=== PATIENT | female | born 1940 | race Caucasian/White ===

== ENCOUNTER 2016-08-30 20:12 | Observation (INO) | payer MEDICARE ==
--- NOTE | 2016-08-30 21:35 | RAD ---
Indication: Shortness of breath. Single frontal view of the chest performed at 2104 hours was reviewed. Comparison is made with previous exam dated November 19, 2014. No mediastinal shift is noted. Heart is of normal size and configuration. Lung lynn appear clear. Central line is in place. No pneumothorax is noted. IMPRESSION: NO ACTIVE CARDIOPULMONARY DISEASE IS NOTED.
[2016-08-30 22:04] LABS: Hematocrit 33 % (35-47); Hemoglobin 10.5 g/dl (12.0-16.0); Mean Corpuscular HGB Conc 32 g/dl (31-36); Mean Corpuscular Hemoglobin 31 pg (27-31); Mean Corpuscular Volume 96 fL (80-97); Mean Platelet Volume 11 um3 (7.4-10.4); Red Blood Count 3.42 10^6/ul (4.0-5.4); Red Cell Distribution Width 18 % (10.5-15); White Blood Count 6.3 10^3/ul (3.5-10.8)
[2016-08-30 22:05] LABS: Add Diff/Slide Review? Slide Review Added; Comments Flag Yes
[2016-08-30 22:11] LABS: Urine Bacteria 1+ (Absent); Urine Bilirubin Negative (Negative); Urine Glucose 1+(50 mg/dL) (Negative); Urine Nitrite Negative (Negative)
[2016-08-30 22:19] LABS: Albumin 3.8 g/dL (3.2-5.2); BUN/Creatinine Ratio 15.5 (8-20); C Reactive Protein 39.83 mg/L (< 5.00); Calcium 8.6 mg/dL (8.6-10.3); EGFR African American 62.4 (>60); EGFR Non-African American 48.6 (>60); Globulin 2.9 g/dL (2-4); Magnesium 1.8 mg/dL (1.9-2.7); Potassium 4.4 mmol/L (3.5-5.0); Total Bilirubin 0.6 mg/dL (0.2-1.0); Total Protein 6.7 g/dL (6.4-8.9)
[2016-08-30] MEDS ORDERED: Iodixanol* (CONTRAST) 320 MG/ML 100 ML SDV IV ONE (22:24)
--- NOTE | 2016-08-30 22:54 | RAD ---
Indication: Shortness of breath. Contrast: Administered 74.0 ml of Contrast -- mgi/ml CTA of the chest was performed after IV contrast administration. Coronal and sagittal reconstructed images were obtained. The pulmonary arterial tree is well opacified. There are no filling defects present to suggest pulmonary embolus. The ascending, aortic arch and descending thoracic aorta demonstrates no evidence of aortic dissection or aneurysmal dilatation. The patient apparently is status post left thyroidectomy. There is no mediastinal or hilar adenopathy noted. The heart demonstrates no pericardial effusion. The changes and major bronchi appear patent. Lung lynn demonstrate no evidence of alveolar consolidation. Some atelectasis is noted in the left lower lobe just adjacent to the fissure. The visualized bony structures demonstrates degenerative disc disease at multiple levels in the lower thoracic spine. The visualized abdominal organs are otherwise unremarkable aside from a distended stomach. IMPRESSION: No definite evidence of pulmonary embolus is noted.
[2016-08-30] MEDS ORDERED: NS 0.9% 500 ML BAG* 500 ML IV ONE (23:00)
--- NOTE | 2016-08-31 03:39 | HP ---
H&P (Free Text) History and Physical: PCP: Garcia Krause MD Oncology: Kee Sampson MD Date/Time of Evaluation: 08/31/2016 0340 CC: SOB HPI: Mrs Hilliard is a 76YO female HX pancreatic CA s/p hepatic stenting & Whipple who developed rapid onset of SOB and fatigue during chemoTX Monday prompting her to present for evaluation. She denies chest pain, F/C, N/V/D, change in bowel/bladder, congestion, change in cough, or other issues. ED evaluation shows benign CXR, stable vitals, and baseline lab values. She initially refused to ambulate to test for desaturation, but agreed once she was explained that subjective SOB would only qualify her for an observation which may incur more expense. Very soon upon ambulation her saO2 dropped into the low 80s qualifying her for full admission. PMedHx pancreatic CA s/p hepatic stenting & Whipple with recurrence in lymph nodes normocytic anemia HTN HLD Ambulatory Orders Ezetimibe TAB* [Zetia TAB*] 10 mg PO DAILY 10/15/14 Ondansetron ODT TAB* [Zofran Odt TAB*] 4 mg PO Q6H PRN 12/31/14 Pancrelipase (NF) [Creon (NF)] 1 cap PO SEE INSTRUCTIONS 08/30/16 Pancrelipase (NF) [Creon (NF)] 12,000 units PO TID WITH MEALS 08/30/16 Pregabalin CAP(*) [Lyrica CAP(*)] 25 mg PO BID 08/30/16 Tramadol HCl [Ultram] 50 mg PO Q12HR 08/30/16 Allergies Morphine Adverse Reaction (Mild, Verified 08/31/16 04:00) Nausea And Vomiting PSurgHx C3-7 laminectomy tonsillectomy Whipple for pancreatic CA appendectomy hysterectomy bunionectomy SocHx: former smoker w/ >40PYHX, minimal alcohol, no recreational drugs; lives with her in a 3 story house with numerous internal stairs and an elevator for entry; 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[employer]; full code status FamHx: positive for HTN, HLD ROS: as above, otherwise reviewed and all were negative Constitutional: NAD, normally developed, overweight white female vitals: Vital Signs Temp 37.1 C 08/31/16 00:46 Pulse 95 08/31/16 01:00 Resp 19 08/31/16 02:02 BP 160/84 08/31/16 02:02 Pulse Ox 91 08/31/16 01:00 Intake & Output 08/30/16 08/30/16 08/31/16 11:59 23:59 11:59 Weight 74.843 kg HEENM: atraumatic; sclera/conjunctiva: non-icteric/clear; hearing: clinically intact; oropharynx: clear, mucosa moist Neck: soft tissue: non-tender; thyroid: normal Pulmonary: clear to auscultation bilaterally, good aeration, no accessory muscle use CV: RR/RR, normal S1S2, no carotid bruit, no jugular venous distention, 2+ B DP/ PT, no edema Abdominal: soft, non-distended, diffusely mildly tender, no rebound/guarding/ rigidity, normoactive bowel sounds, no hepatosplenomegaly or masses, no costovertebral angle tenderness Musculoskeletal: general: grossly intact; gait: Integumental: normal appearance and texture of exposed skin Psychiatric orientation: AA&O to PPS affect: calm mood: cooperative eye contact: good content: reliable responses: timely insight: fair Testing: Lab Results 08/30/16 08/30/16 08/30/16 Range/Units 21:50 21:50 21:50 WBC 6.3 (3.5-10.8) 10^3/ul RBC 3.42 L (4.0-5.4) 10^6/ul Hgb 10.5 L (12.0-16.0) g/dl Hct 33 L (35-47) % MCV 96 (80-97) fL MCH 31 (27-31) pg MCHC 32 (31-36) g/dl RDW 18 H (10.5-15) % Plt Count 128 L (150-450) 10^3/ul MPV 11 H (7.4-10.4) um3 Neut % (Auto) 90.7 H (38-83) % Lymph % (Auto) 3.6 L (25-47) % [place] % (Auto) 3.4 (1-9) % Eos % (Auto) 0.7 (0-6) % Baso % (Auto) 1.6 (0-2) % Absolute Neuts (auto) 5.7 (1.5-7.7) 10^3/ul Absolute Lymphs (auto) 0.2 L (1.0-4.8) 10^3/ul Absolute Monos (auto) 0.2 (0-0.8) 10^3/ul Absolute Eos (auto) 0 (0-0.6) 10^3/ul Absolute Basos (auto) 0.1 (0-0.2) 10^3/ul Absolute Nucleated RBC 0.01 10^3/ul Nucleated RBC % 0.1 INR (Anticoag Therapy) 0.96 (0.89-1.11) Sodium (133-145) mmol/L Potassium (3.5-5.0) mmol/L Chloride (101-111) mmol/L Carbon Dioxide (22-32) mmol/L Anion Gap (2-11) mmol/L BUN (6-24) mg/dL Creatinine (0.51-0.95) mg/dL Est GFR ( Amer) (>60) Est GFR (Non-Af Amer) (>60) BUN/Creatinine Ratio (8-20) Glucose (70-100) mg/dL Lactic Acid (0.5-2.0) mmol/L Calcium (8.6-10.3) mg/dL Magnesium (1.9-2.7) mg/dL Total Bilirubin (0.2-1.0) mg/dL AST (13-39) U/L ALT (7-52) U/L Alkaline Phosphatase (34-104) U/L Total Creatine Kinase (10-223) U/L CK-MB (CK-2) (0.6-6.3) ng/mL Troponin I (<0.04) ng/mL C-Reactive Protein (< 5.00) mg/L Total Protein (6.4-8.9) g/dL Albumin (3.2-5.2) g/dL Globulin (2-4) g/dL Albumin/Globulin Ratio (1-3) Urine Color Yellow Urine Appearance Clear Urine pH 6.0 (5-9) Ur Specific [place] 1.011 (1.010-1.030) Urine Protein Negative (Negative) Urine Ketones Negative (Negative) Urine Blood 1+ H (Negative) Urine Nitrate Negative (Negative) Urine Bilirubin Negative (Negative) Urine Urobilinogen Negative (Negative) Ur Leukocyte Esterase Negative (Negative) Urine WBC (Auto) Trace(0-5/hpf) (Absent) Urine RBC (Auto) 1+(3-5/hpf) H (Absent) Ur Squamous Epith Cells Present H (Absent) Urine Bacteria 1+ H (Absent) Urine Glucose 1+(50 mg/dl) H (Negative) 08/30/16 08/30/16 Range/Units 21:50 21:50 WBC (3.5-10.8) 10^3/ul RBC (4.0-5.4) 10^6/ul Hgb (12.0-16.0) g/dl Hct (35-47) % MCV (80-97) fL MCH (27-31) pg MCHC (31-36) g/dl RDW (10.5-15) % Plt Count (150-450) 10^3/ul MPV (7.4-10.4) um3 Neut % (Auto) (38-83) % Lymph % (Auto) (25-47) % [place] % (Auto) (1-9) % Eos % (Auto) (0-6) % Baso % (Auto) (0-2) % Absolute Neuts (auto) (1.5-7.7) 10^3/ul Absolute Lymphs (auto) (1.0-4.8) 10^3/ul Absolute Monos (auto) (0-0.8) 10^3/ul Absolute Eos (auto) (0-0.6) 10^3/ul Absolute Basos (auto) (0-0.2) 10^3/ul Absolute Nucleated RBC 10^3/ul Nucleated RBC % INR (Anticoag Therapy) (0.89-1.11) Sodium 136 (133-145) mmol/L Potassium 4.4 (3.5-5.0) mmol/L Chloride 105 (101-111) mmol/L Carbon Dioxide 23 (22-32) mmol/L Anion Gap 8 (2-11) mmol/L BUN 17 (6-24) mg/dL Creatinine 1.10 H (0.51-0.95) mg/dL Est GFR ( Amer) 62.4 (>60) Est GFR (Non-Af Amer) 48.6 (>60) BUN/Creatinine Ratio 15.5 (8-20) Glucose 175 H (70-100) mg/dL Lactic Acid 2.4 H* (0.5-2.0) mmol/L Calcium 8.6 (8.6-10.3) mg/dL Magnesium 1.8 L (1.9-2.7) mg/dL Total Bilirubin 0.60 (0.2-1.0) mg/dL AST 44 H (13-39) U/L ALT 23 (7-52) U/L Alkaline Phosphatase 220 H (34-104) U/L Total Creatine Kinase 36 (10-223) U/L CK-MB (CK-2) 1.0 (0.6-6.3) ng/mL Troponin I 0.00 (<0.04) ng/mL C-Reactive Protein 39.83 H (< 5.00) mg/L Total Protein 6.7 (6.4-8.9) g/dL Albumin 3.8 (3.2-5.2) g/dL Globulin 2.9 (2-4) g/dL Albumin/Globulin Ratio 1.3 (1-3) Urine Color Urine Appearance Urine pH (5-9) Ur Specific [place] (1.010-1.030) Urine Protein (Negative) Urine Ketones (Negative) Urine Blood (Negative) Urine Nitrate (Negative) Urine Bilirubin (Negative) Urine Urobilinogen (Negative) Ur Leukocyte Esterase (Negative) Urine WBC (Auto) (Absent) Urine RBC (Auto) (Absent) Ur Squamous Epith Cells (Absent) Urine Bacteria (Absent) Urine Glucose (Negative) CXR, personally reviewed: IMPRESSION: NO ACTIVE CARDIOPULMONARY DISEASE IS NOTED. CTA chest, personally reviewed: IMPRESSION: No definite evidence of pulmonary embolus is noted. 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
[2016-08-31] MEDS ORDERED: hydrALAZINE IV* 20 MG/ML VIAL IV PRN (04:08)
[2016-08-31] MEDS ORDERED: Acetaminophen TAB* 325 MG PO PRN (04:08)
[2016-08-31] MEDS ORDERED: Albuterol 2.5 MG/3 ML NEB.SOL* (0.083%) INH PRN (04:08)
[2016-08-31 06:20] LABS: Hematocrit 26 % (35-47); Hemoglobin 8.7 g/dl (12.0-16.0); Mean Corpuscular HGB Conc 33 g/dl (31-36); Mean Corpuscular Hemoglobin 31 pg (27-31); Mean Corpuscular Volume 94 fL (80-97); Mean Platelet Volume 11 um3 (7.4-10.4); Red Blood Count 2.78 10^6/ul (4.0-5.4); Red Cell Distribution Width 18 % (10.5-15); White Blood Count 7.7 10^3/ul (3.5-10.8)
[2016-08-31 06:21] LABS: Comments Flag Yes
[2016-08-31 06:36] LABS: BUN/Creatinine Ratio 18.2 (8-20); Calcium 7.8 mg/dL (8.6-10.3); EGFR African American 70.5 (>60); EGFR Non-African American 54.8 (>60); Potassium 4.3 mmol/L (3.5-5.0)
[2016-08-31] MEDS ORDERED: Pregabalin CAP(*) 25 MG ONE (08:14)
[2016-08-31 08:15] VITALS: BP 152/82
[2016-08-31] MEDS ORDERED: traMADol TAB* 50 MG PO PRN (08:17)
[2016-08-31] MEDS: traMADol TAB* 50 MG ONE ×2 (08:18→09:54)
[2016-08-31] MEDS ORDERED: Pregabalin CAP(*) 50 MG PO SCH (09:00)
[2016-08-31] MEDS ORDERED: Pregabalin CAP(*) 25 MG PO SCH (09:00)
[2016-08-31] MEDS ORDERED: Docusate CAP* 100 MG PO SCH (09:00)
--- NOTE | 2016-08-31 14:14 | ED ---
Charlene Dallas Anna, scribed for TessaiAmy MD on 08/30/16 at 2106 . Shortness of Breath - HPI Summary HPI Summary: Patient is a 76 y/o female coming to [facility] presenting with constant SOB that began this afternoon during her regularly scheduled chemotherapy treatment. This does not typically happen during her chemotherapy treatments, which she has been receiving for the last two years. She reports that she is coughing because of the SOB. Denies fever. She recently had a UTI, but her urine today was clear. She is not on any blood thinners. 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 Her current symptoms do not feel similar to her previous PE. She follows with Dr. Sampson, her oncologist. Her history is significant for pancreatic CA, HTN, PE, cardiac arrest. Patient medications were reviewed this visit. - History of Current Complaint Chief Complaint: EDShortnessOfBreath Time Seen by Provider: 08/30/16 20:49 Hx Obtained From: Patient, Family/[employer] - accompanied by and family Onset/Duration: Lasting Hours, Still Present - Allergy/Home Medications Allergies/Adverse Reactions: Allergies Allergy/AdvReac Type Severity Reaction Status Date / Time Morphine AdvReac Mild Nausea And Verified 08/31/16 04:00 Vomiting Home Medications: Home Medications Pancrelipase (NF) [Creon (NF)] 1 cap PO SEE INSTRUCTIONS 08/30/16 [History Confirmed 08/30/16] Pancrelipase (NF) [Creon (NF)] 12,000 units PO TID WITH MEALS 08/30/16 [History Confirmed 08/30/16] Tramadol HCl [Ultram] 50 mg PO Q12HR 08/30/16 [History Confirmed 08/30/16] PMH/Surg Hx/FS Hx/Imm Hx Endocrine/Hematology History: Denies: Hx Diabetes Cardiovascular History: Reports: Hx Cardiac Arrest, Hx Hypercholesterolemia, Hx Hypertension Denies: Hx Congestive Heart Failure, Hx Pacemaker/ICD Respiratory History: Reports: Hx Pulmonary Embolism Denies: Hx Asthma History: Denies: Hx Renal Disease Sensory History: Reports: Hx Contacts or Glasses Denies: Hx Hearing Aid Opthamlomology History: Reports: Hx Contacts or Glasses Psychiatric History: Denies: Hx Panic Disorder - Cancer History Cancer Type, Location and Year: Pancreatic, untreated Hx Chemotherapy: No Hx Radiation Therapy: No - Surgical History Surgery Procedure, Year, and Place: APPY, cervical laminectomy c4,5,6,7/. PARTIAL THROIDECTOMY. COCCYX REMOVED. T&A. BUNIONECTOMY LEFT FOOT. LEFT BREAST BIOPSY. TONSILLECTOMY Infectious Disease History: No Infectious Disease History: Reports: Hx Shingles Denies: Traveled Outside the [place] in Last 30 Days - Family History Known Family History: Positive: Hypertension - Social History Alcohol Use: Occasionally Substance Use Type: Reports: None Smoking Status (MU): Former Smoker Review of Systems Negative: Fever Positive: Chest Pain - right sided Positive: Shortness Of Breath, Cough Positive: Numbness - right leg, baseline All Other Systems Reviewed And Are Negative: Yes Physical Exam Triage Information Reviewed: Yes Vital Signs On Initial Exam: Initial Vitals Temp Pulse Resp BP Pulse Ox 98.2 F 114 20 168/99 97 08/30/16 20:17 08/30/16 20:17 08/30/16 20:17 08/30/16 20:17 08/30/16 20:17 Vital Signs Reviewed: Yes Appearance: Positive: No Pain Distress, Well-Nourished, Ill-Appearing - chronically Skin: Positive: Warm, Dry, Pale - Generalized pallor, Other - generalized alopecia secondary to chemotherapy Head/Face: Positive: Normal Head/Face Inspection Eyes: Positive: EOMI, KENDRA, Conjunctiva Clear ENT: Positive: Pharynx normal, TMs normal Neck: Positive: Supple, Nontender Respiratory/Lung Sounds: Positive: Clear to Auscultation, Breath Sounds Present , Other - Poor respiratory effort. Negative: Rales, Rhonchi, Wheezes Cardiovascular: Positive: RRR, S1, S2. Negative: Murmur, Rub, Other - no gallops Abdomen Description: Positive: Soft, Other: - Healed horizontal epigastric surgical scar. Mild tenderness to palpation of epigastrium, chronic.. Negative : Distended, Guarding Bowel Sounds: Positive: Present Musculoskeletal: Positive: Normal, Strength/ROM Intact Neurological: Positive: Alert, Oriented to Person Place, Time. Negative: Cerebellar Dysfunction Psychiatric: Positive: Affect/Mood Appropriate Diagnostics - Vital Signs Vital Signs Temp Pulse Resp BP Pulse Ox 08/30/16 20:32 98.4 F 105 15 184/86 95 08/30/16 20:17 98.2 F 114 20 168/99 97 - Laboratory Lab Results: Lab Results 08/30/16 08/30/16 08/30/16 Range/Units 21:50 21:50 21:50 WBC 6.3 (3.5-10.8) 10^3/ul RBC 3.42 L (4.0-5.4) 10^6/ul Hgb 10.5 L (12.0-16.0) g/dl Hct 33 L (35-47) % MCV 96 (80-97) fL MCH 31 (27-31) pg MCHC 32 (31-36) g/dl RDW 18 H (10.5-15) % Plt Count 128 L (150-450) 10^3/ul MPV 11 H (7.4-10.4) um3 Neut % (Auto) 90.7 H (38-83) % Lymph % (Auto) 3.6 L (25-47) % [place] % (Auto) 3.4 (1-9) % Eos % (Auto) 0.7 (0-6) % Baso % (Auto) 1.6 (0-2) % Absolute Neuts (auto) 5.7 (1.5-7.7) 10^3/ul Absolute Lymphs (auto) 0.2 L (1.0-4.8) 10^3/ul Absolute Monos (auto) 0.2 (0-0.8) 10^3/ul Absolute Eos (auto) 0 (0-0.6) 10^3/ul Absolute Basos (auto) 0.1 (0-0.2) 10^3/ul Absolute Nucleated RBC 0.01 10^3/ul Nucleated RBC % 0.1 INR (Anticoag Therapy) 0.96 (0.89-1.11) Sodium (133-145) mmol/L Potassium (3.5-5.0) mmol/L Chloride (101-111) mmol/L Carbon Dioxide (22-32) mmol/L Anion Gap (2-11) mmol/L BUN (6-24) mg/dL Creatinine (0.51-0.95) mg/dL Est GFR ( Amer) (>60) Est GFR (Non-Af Amer) (>60) BUN/Creatinine Ratio (8-20) Glucose (70-100) mg/dL Lactic Acid (0.5-2.0) mmol/L Calcium (8.6-10.3) mg/dL Magnesium (1.9-2.7) mg/dL Total Bilirubin (0.2-1.0) mg/dL AST (13-39) U/L ALT (7-52) U/L Alkaline Phosphatase (34-104) U/L Total Creatine Kinase (10-223) U/L CK-MB (CK-2) (0.6-6.3) ng/mL Troponin I (<0.04) ng/mL C-Reactive Protein (< 5.00) mg/L Total Protein (6.4-8.9) g/dL Albumin (3.2-5.2) g/dL Globulin (2-4) g/dL Albumin/Globulin Ratio (1-3) Urine Color Yellow Urine Appearance Clear Urine pH 6.0 (5-9) Ur Specific [place] 1.011 (1.010-1.030) Urine Protein Negative (Negative) Urine Ketones Negative (Negative) Urine Blood 1+ H (Negative) Urine Nitrate Negative (Negative) Urine Bilirubin Negative (Negative) Urine Urobilinogen Negative (Negative) Ur Leukocyte Esterase Negative (Negative) Urine WBC (Auto) Trace(0-5/hpf) (Absent) Urine RBC (Auto) 1+(3-5/hpf) H (Absent) Ur Squamous Epith Cells Present H (Absent) Urine Bacteria 1+ H (Absent) Urine Glucose 1+(50 mg/dl) H (Negative) 08/30/16 08/30/16 Range/Units 21:50 21:50 WBC (3.5-10.8) 10^3/ul RBC (4.0-5.4) 10^6/ul Hgb (12.0-16.0) g/dl Hct (35-47) % MCV (80-97) fL MCH (27-31) pg MCHC (31-36) g/dl RDW (10.5-15) % Plt Count (150-450) 10^3/ul MPV (7.4-10.4) um3 Neut % (Auto) (38-83) % Lymph % (Auto) (25-47) % [place] % (Auto) (1-9) % Eos % (Auto) (0-6) % Baso % (Auto) (0-2) % Absolute Neuts (auto) (1.5-7.7) 10^3/ul Absolute Lymphs (auto) (1.0-4.8) 10^3/ul Absolute Monos (auto) (0-0.8) 10^3/ul Absolute Eos (auto) (0-0.6) 10^3/ul Absolute Basos (auto) (0-0.2) 10^3/ul Absolute Nucleated RBC 10^3/ul Nucleated RBC % INR (Anticoag Therapy) (0.89-1.11) Sodium 136 (133-145) mmol/L Potassium 4.4 (3.5-5.0) mmol/L Chloride 105 (101-111) mmol/L Carbon Dioxide 23 (22-32) mmol/L Anion Gap 8 (2-11) mmol/L BUN 17 (6-24) mg/dL Creatinine 1.10 H (0.51-0.95) mg/dL Est GFR ( Amer) 62.4 (>60) Est GFR (Non-Af Amer) 48.6 (>60) BUN/Creatinine Ratio 15.5 (8-20) Glucose 175 H (70-100) mg/dL Lactic Acid 2.4 H* (0.5-2.0) mmol/L Calcium 8.6 (8.6-10.3) mg/dL Magnesium 1.8 L (1.9-2.7) mg/dL Total Bilirubin 0.60 (0.2-1.0) mg/dL AST 44 H (13-39) U/L ALT 23 (7-52) U/L Alkaline Phosphatase 220 H (34-104) U/L Total Creatine Kinase 36 (10-223) U/L CK-MB (CK-2) 1.0 (0.6-6.3) ng/mL Troponin I 0.00 (<0.04) ng/mL C-Reactive Protein 39.83 H (< 5.00) mg/L Total Protein 6.7 (6.4-8.9) g/dL Albumin 3.8 (3.2-5.2) g/dL Globulin 2.9 (2-4) g/dL Albumin/Globulin Ratio 1.3 (1-3) Urine Color Urine Appearance Urine pH (5-9) Ur Specific [place] (1.010-1.030) Urine Protein (Negative) Urine Ketones (Negative) Urine Blood (Negative) Urine Nitrate (Negative) Urine Bilirubin (Negative) Urine Urobilinogen (Negative) Ur Leukocyte Esterase (Negative) Urine WBC (Auto) (Absent) Urine RBC (Auto) (Absent) Ur Squamous Epith Cells (Absent) Urine Bacteria (Absent) Urine Glucose (Negative) Result Diagrams: 08/31/16 05:57 08/31/16 05:57 Lab Statement: Any lab studies that have been ordered have been reviewed, and results considered in the medical decision making process. - Radiology CXR Xray Interpretation: No Acute Changes Radiology Interpretation Completed By: Radiologist Course/Dx - Course Assessment/Plan: Patient is a 76 y/o female coming to [facility] presenting with constant SOB that began this afternoon during her regularly scheduled chemotherapy treatment. CXR reveals no acute disease. Patient will be signed out at shift change, pending chest CT and lab results. - Diagnoses Provider Diagnoses: Shortness of breath Discharge - Discharge Plan Condition: Stable Disposition: ADMITTED TO [facility] Discharge Disposition Comment: signed out to Dr. Damon at shift change, pending chest CT and labs The documentation as recorded by the Charlene alvarez Anna accurately reflects the service I personally performed and the decisions made by Arlette alexander Afoma Frances, MD.
[2016-09-01] MEDS ORDERED: Heparin VIAL(*) 5000 UNITS/ML VIAL (FIVE THOUSAND) SUBCUT SCH (06:00)
== END 2016-08-31 13:15 | disposition home or self-care (01) ==
LOC: ED 20:12 → MED 08-31 03:32 → INTOOBSV 08-31 03:32
PROVIDERS: ADMIT Hospitalist; ATTEND Internal Medicine Hematology & Oncology
DX: J96.01 Acute respiratory failure with hypoxia (principal); C25.9 Malignant neoplasm of pancreas, unspecified; C77.9 Secondary and unspecified malignant neoplasm of lymph node, unspecified; G62.9 Polyneuropathy, unspecified; D64.9 Anemia, unspecified; I10 Essential (primary) hypertension; E78.5 Hyperlipidemia, unspecified; E78.00 Pure hypercholesterolemia, unspecified; I25.2 Old myocardial infarction; Z87.891 Personal history of nicotine dependence
CPT/HCPCS: 36415; 71010; 71275; 80048; 80053; 81003; 81015; 82550; 82553; 83605; 83735; 83880; 84484; 85025; 85027; 85610; 86140; 87086; 99285; A9270-GY; G0378; G8978-GP-CI; G8979-GP-CI; G8980-GP-CI; J1100; J1642; J2469; J9201; J9264; Q9967

== ENCOUNTER 2016-11-13 04:57 | Inpatient (IN) | payer MEDICARE ==
[2016-11-13] MEDS ORDERED: Vancomycin(*) 1,000 MG in NS 0.9% 250 ML* 250 ML IVPB ONE (05:33)
[2016-11-13] MEDS ORDERED: Acetaminophen TAB* 325 MG PO ONE (05:33)
[2016-11-13] MEDS ORDERED: NS 0.9% 1000 ML* 2,000 ML IV ONE (05:33)
[2016-11-13] MEDS ORDERED: NS 0.9% 250 ML* 250 ML ONE (05:39)
[2016-11-13] MEDS ORDERED: NS 0.9% 1000 ML* 1,000 ML IV SCH ×2 (05:45→09:30)
[2016-11-13 06:07] LABS: Hematocrit 27 % (35-47); Hemoglobin 8.8 g/dl (12.0-16.0); Mean Corpuscular HGB Conc 32 g/dl (31-36); Mean Corpuscular Hemoglobin 32 pg (27-31); Mean Corpuscular Volume 99 fL (80-97); Mean Platelet Volume 9 um3 (7.4-10.4); Red Blood Count 2.72 10^6/ul (4.0-5.4); Red Cell Distribution Width 24 % (10.5-15); White Blood Count 8.7 10^3/ul (3.5-10.8)
[2016-11-13 06:10] LABS: Add Diff/Slide Review? Slide Review Added; Comments Flag Yes
[2016-11-13 06:18] LABS: Urine Bacteria 1+ (Absent); Urine Bilirubin Negative (Negative); Urine Glucose Negative (Negative); Urine Nitrite Positive (Negative)
[2016-11-13 06:23] LABS: Albumin 2.9 g/dL (3.2-5.2); BUN/Creatinine Ratio 9.3 (8-20); C Reactive Protein 69.94 mg/L (< 5.00); Calcium 7.9 mg/dL (8.6-10.3); EGFR African American 57.6 (>60); EGFR Non-African American 44.8 (>60); Globulin 2.3 g/dL (2-4); Potassium 3.6 mmol/L (3.5-5.0); Total Protein 5.2 g/dL (6.4-8.9)
[2016-11-13 06:25] LABS: Troponin I 0.07 ng/mL (<0.04)
[2016-11-13] MEDS ORDERED: Diltiazem IV* 5 MG/ML 5 ML VIAL (for loading dose/IV Push) (25 MG) IV SLOW PU ONE (06:30)
[2016-11-13] MEDS ORDERED: Diltiazem IV VIAL* 125 MG in D5W 100 ML BAG* 100 ML IV ONE (06:38)
[2016-11-13] MEDS ORDERED: Vancomycin(*) 1,000 MG ADVAN IVPB ONE (06:46)
--- NOTE | 2016-11-13 06:46 | ED ---
Ronnie Dallas Alfonso, scribed for Carlos Alberto Horner on 11/13/16 at 0548 . Complex/Multi-Sys Presentation - HPI Summary HPI Summary: This patient is a 76 year old F BIBA to [facility] with a chief complaint of weakness since 12 hours ago. Pt rates the pain 0/10 in severity. Symptoms aggravated and alleviated by nothing. Pt reports a fever. Pt denies cough. PMHx of pancreatic cancer for which she is on chemotherapy. - History Of Current Complaint Chief Complaint: EDWeakness Time Seen by Provider: 11/13/16 05:21 Hx Obtained From: Patient Onset/Duration: Sudden Onset, Lasting Hours - 12, Still Present Timing: Constant Severity Currently: Moderate Severity Initially: Moderate Location: Negative Aggravating Factor(s): Nothing. Alleviating Factor(s): Nothing. Associated Signs And Symptoms: Positive: Fever. Negative: Cough - Allergies/Home Medications Allergies/Adverse Reactions: Allergies Allergy/AdvReac Type Severity Reaction Status Date / Time Latex Allergy Blisters Verified 11/13/16 05:36 Morphine AdvReac Mild Nausea And Verified 11/10/16 12:09 Vomiting PMH/Surg Hx/FS Hx/Imm Hx Endocrine/Hematology History: Denies: Hx Diabetes Cardiovascular History: Reports: Hx Cardiac Arrest, Hx Hypercholesterolemia Denies: Hx Congestive Heart Failure, Hx Hypertension, Hx Pacemaker/ICD Respiratory History: Reports: Hx Pulmonary Embolism Denies: Hx Asthma History: Denies: Hx Renal Disease Sensory History: Reports: Hx Contacts or Glasses Denies: Hx Hearing Aid Opthamlomology History: Reports: Hx Contacts or Glasses Psychiatric History: Denies: Hx Panic Disorder - Cancer History Cancer Type, Location and Year: Pancreatic, untreated Hx Chemotherapy: No Hx Radiation Therapy: No - Surgical History Surgery Procedure, Year, and Place: APPY, cervical laminectomy c4,5,6,7/. PARTIAL THROIDECTOMY. COCCYX REMOVED. T&A. BUNIONECTOMY LEFT FOOT. LEFT BREAST BIOPSY. TONSILLECTOMY Infectious Disease History: Yes Infectious Disease History: Reports: Hx Shingles Denies: Traveled Outside the [place] in Last 30 Days - Family History Known Family History: Positive: Hypertension - Social History Alcohol Use: None Substance Use Type: Reports: None Smoking Status (MU): Former Smoker Review of Systems Positive: Fever Negative: Cough Positive: Weakness All Other Systems Reviewed And Are Negative: Yes Physical Exam Triage Information Reviewed: Yes Vital Signs On Initial Exam: Initial Vitals Temp Pulse Resp BP Pulse Ox 99.4 F 135 16 139/85 90 11/13/16 05:22 11/13/16 05:22 11/13/16 05:22 11/13/16 05:22 11/13/16 05:22 Vital Signs Reviewed: Yes Appearance: Positive: Well-Appearing, No Pain Distress Skin: Positive: Warm, Skin Color Reflects Adequate Perfusion, Dry Head/Face: Positive: Normal Head/Face Inspection Eyes: Positive: EOMI, KENDRA ENT: Positive: Normal ENT inspection Neck: Positive: Supple, Nontender Respiratory/Lung Sounds: Positive: Clear to Auscultation, Breath Sounds Present Cardiovascular: Positive: Pulses are Symmetrical in both Upper and Lower Extremities, Tachycardia Abdomen Description: Positive: Nontender, Soft, Other: - Scar on abdomen Bowel Sounds: Positive: Present Musculoskeletal: Positive: Normal, Strength/ROM Intact Neurological: Positive: Normal, Sensory/Motor Intact, Alert, Oriented to Person Place, Time Diagnostics - Vital Signs Vital Signs Temp Pulse Resp BP Pulse Ox 11/13/16 05:30 99.4 F 142 17 145/85 92 11/13/16 05:22 99.4 F 135 16 139/85 90 - Laboratory Lab Results: Lab Results 11/13/16 11/13/16 11/13/16 Range/Units 05:20 05:43 05:43 WBC 8.7 (3.5-10.8) 10^3/ul RBC 2.72 L (4.0-5.4) 10^6/ul Hgb 8.8 L (12.0-16.0) g/dl Hct 27 L (35-47) % MCV 99 H (80-97) fL MCH 32 H (27-31) pg MCHC 32 (31-36) g/dl RDW 24 H (10.5-15) % Plt Count 158 (150-450) 10^3/ul MPV 9 (7.4-10.4) um3 Neut % (Auto) 80.0 (38-83) % Lymph % (Auto) 4.4 L (25-47) % Titus % (Auto) 14.6 H (1-9) % Eos % (Auto) 0 (0-6) % Baso % (Auto) 1.0 (0-2) % Absolute Neuts (auto) 7.0 (1.5-7.7) 10^3/ul Absolute Lymphs (auto) 0.4 L (1.0-4.8) 10^3/ul Absolute Monos (auto) 1.3 H (0-0.8) 10^3/ul Absolute Eos (auto) 0 (0-0.6) 10^3/ul Absolute Basos (auto) 0.1 (0-0.2) 10^3/ul Absolute Nucleated RBC 0 10^3/ul Nucleated RBC % 0 INR (Anticoag Therapy) 1.33 H (0.89-1.11) APTT 32.3 (26.0-36.3) seconds Sodium (133-145) mmol/L Potassium (3.5-5.0) mmol/L Chloride (101-111) mmol/L Carbon Dioxide (22-32) mmol/L Anion Gap (2-11) mmol/L BUN (6-24) mg/dL Creatinine (0.51-0.95) mg/dL Est GFR ( Amer) (>60) Est GFR (Non-Af Amer) (>60) BUN/Creatinine Ratio (8-20) Glucose (70-100) mg/dL Lactic Acid (0.5-2.0) mmol/L Calcium (8.6-10.3) mg/dL Total Bilirubin (0.2-1.0) mg/dL AST (13-39) U/L ALT (7-52) U/L Alkaline Phosphatase (34-104) U/L Troponin I (<0.04) ng/mL C-Reactive Protein (< 5.00) mg/L B-Natriuretic Peptide ( - 100) pg/mL Total Protein (6.4-8.9) g/dL Albumin (3.2-5.2) g/dL Globulin (2-4) g/dL Albumin/Globulin Ratio (1-3) Urine Color Yellow Urine Appearance Cloudy Urine pH 7.0 (5-9) Ur Specific Larned 1.010 (1.010-1.030) Urine Protein 2+(100 mg/dl) H (Negative) Urine Ketones Negative (Negative) Urine Blood 2+ H (Negative) Urine Nitrate Positive H (Negative) Urine Bilirubin Negative (Negative) Urine Urobilinogen Negative (Negative) Ur Leukocyte Esterase 2+ H (Negative) Urine WBC (Auto) 2+(11-20/hpf) H (Absent) Urine RBC (Auto) 2+(6-10/hpf) H (Absent) Ur Squamous Epith Cells Present H (Absent) Urine Bacteria 1+ H (Absent) Urine Glucose Negative (Negative) 11/13/16 11/13/16 11/13/16 Range/Units 05:43 05:43 05:43 WBC (3.5-10.8) 10^3/ul RBC (4.0-5.4) 10^6/ul Hgb (12.0-16.0) g/dl Hct (35-47) % MCV (80-97) fL MCH (27-31) pg MCHC (31-36) g/dl RDW (10.5-15) % Plt Count (150-450) 10^3/ul MPV (7.4-10.4) um3 Neut % (Auto) (38-83) % Lymph % (Auto) (25-47) % Titus % (Auto) (1-9) % Eos % (Auto) (0-6) % Baso % (Auto) (0-2) % Absolute Neuts (auto) (1.5-7.7) 10^3/ul Absolute Lymphs (auto) (1.0-4.8) 10^3/ul Absolute Monos (auto) (0-0.8) 10^3/ul Absolute Eos (auto) (0-0.6) 10^3/ul Absolute Basos (auto) (0-0.2) 10^3/ul Absolute Nucleated RBC 10^3/ul Nucleated RBC % INR (Anticoag Therapy) (0.89-1.11) APTT (26.0-36.3) seconds Sodium 135 (133-145) mmol/L Potassium 3.6 (3.5-5.0) mmol/L Chloride 105 (101-111) mmol/L Carbon Dioxide 24 (22-32) mmol/L Anion Gap 6 (2-11) mmol/L BUN 11 (6-24) mg/dL Creatinine 1.18 H (0.51-0.95) mg/dL Est GFR ( Amer) 57.6 (>60) Est GFR (Non-Af Amer) 44.8 (>60) BUN/Creatinine Ratio 9.3 (8-20) Glucose 111 H (70-100) mg/dL Lactic Acid 0.9 (0.5-2.0) mmol/L Calcium 7.9 L (8.6-10.3) mg/dL Total Bilirubin 1.00 (0.2-1.0) mg/dL AST 30 (13-39) U/L ALT 18 (7-52) U/L Alkaline Phosphatase 186 H (34-104) U/L Troponin I 0.07 H* (<0.04) ng/mL C-Reactive Protein 69.94 H (< 5.00) mg/L B-Natriuretic Peptide 219 H ( - 100) pg/mL Total Protein 5.2 L (6.4-8.9) g/dL Albumin 2.9 L (3.2-5.2) g/dL Globulin 2.3 (2-4) g/dL Albumin/Globulin Ratio 1.3 (1-3) Urine Color Urine Appearance Urine pH (5-9) Ur Specific Larned (1.010-1.030) Urine Protein (Negative) Urine Ketones (Negative) Urine Blood (Negative) Urine Nitrate (Negative) Urine Bilirubin (Negative) Urine Urobilinogen (Negative) Ur Leukocyte Esterase (Negative) Urine WBC (Auto) (Absent) Urine RBC (Auto) (Absent) Ur Squamous Epith Cells (Absent) Urine Bacteria (Absent) Urine Glucose (Negative) Result Diagrams: 11/13/16 05:43 11/13/16 05:43 Lab Statement: Any lab studies that have been ordered have been reviewed, and results considered in the medical decision making process. - Radiology CXR Radiology Interpretation Completed By: ED Physician - No infiltrates - EKG 0625 Cardiac Rate: Tachycardia - BPM 148 EKG Rhythm: Atrial Fibrillation EKG Interpretation: RVR Complex Multi-Symp Course/Dx Assessment/Plan: 76 year old F BIBA to [facility] with a chief complaint of weakness since 12 hours ago. Pt reports a fever. Pt denies cough. PMHx of pancreatic cancer for which she is on chemotherapy. CXR reveals no infiltrates. An EKG reveals A-Fib with RVR. Pt is signed out to Dr. Starks, pending disposition. - Diagnoses Provider Diagnoses: UTI (urinary tract infection), Sepsis, Chemotherapy follow-up examination, Pancreatic cancer, Atrial fibrillation with RVR - Critical Care Time Critical Care Time: 30-74 min Discharge - Discharge Plan Condition: Stable Disposition: OTHER Discharge Disposition Comment: Pt is signed out to Dr. Starks, pending disposition. Referrals: Jesse Krause MD [Primary Care Provider] - 3 Days The documentation as recorded by the Ronnie alvarez Alfonso accurately reflects the service I personally performed and the decisions made by Siri alexander Emmanuel.
[2016-11-13] MEDS ORDERED: NS 0.9% 1000 ML* 1,000 ML IV ONE (08:23)
--- NOTE | 2016-11-13 09:28 | RAD ---
INDICATION: Fever and weakness] COMPARISON: Most recent comparison chest x-rays dated August 30, 2016 TECHNIQUE: Single AP portable view of the chest was obtained. FINDINGS: Image quality is compromised due to the relative inferiority of a portable chest x-ray. Again seen is a left subclavian vein Mediport with the tip terminating in the superior vena cava. The heart and mediastinum exhibit normal size and contour. The lungs appear hyperaerated in the AP projection. Otherwise the lungs are grossly clear. There is no evidence of a large pleural effusion. Visualized bones are normal for the patient's age. IMPRESSION: No radiographic evidence for acute cardiopulmonary abnormality on this portable chest x-ray.
[2016-11-13] MEDS: NS 0.9% 1000 ML* 1,000 ML IV SCH ×2 (10:44→21:34)
[2016-11-13] MEDS ORDERED: Pancrelipase (NF) 12,000 UNITS CAP.DR PO SCH ×2 (11:00→17:00)
[2016-11-13] MEDS: cefTRIAXone VIAL(*) 1,000 MG in NS 0.9% 50 ML* 50 ML IVPB SCH (11:23)
[2016-11-13] MEDS: Pancrelipase CAP* 5,000 UNITS CAP PO SCH ×2 (11:24→15:57)
[2016-11-13] MEDS: Heparin VIAL(*) 5000 UNITS/ML VIAL (FIVE THOUSAND) SUBCUT SCH ×2 (13:02→21:36)
[2016-11-13] MEDS: Acetaminophen TAB* 325 MG PO PRN (15:57)
[2016-11-13] MEDS: Ondansetron INJ* 2 MG/ML VIAL IV PRN (16:06)
--- NOTE | 2016-11-13 16:35 | HP ---
CC: Dr. Krause; Dr. Sampson * HISTORY AND PHYSICAL: DATE OF ADMISSION: 11/13/16 PRIMARY CARE PROVIDER: Dr. Krause ONCOLOGIST: Dr. Sampson CHIEF COMPLAINT: Weakness. HISTORY OF PRESENT ILLNESS: Ms. Hilliard is a 76-year-old female, who presented to the emergency room on 11/13/16 with complaints of weakness. The patient at this time is quite lethargic and falls asleep frequently during my exam and it is difficult to get history from her. The patient is able to tell me that she felt fine up until yesterday when she suddenly developed weakness. She has described this as diffuse and not focal at all. She did have chemotherapy two weeks ago for her history of recurrent pancreatic cancer. The patient denies any palpitations. She denies any chest pain. She denies shortness of breath. She does admit to occasional dysuria, but is unable to tell me if this has been recent. She denies any hematuria. The patient denies any fevers or chills, but states someone told her she had a fever. It is unclear if this was in the ER or with EMS. She states her appetite has been fine. PAST MEDICAL HISTORY: 1. Recurrent pancreatic cancer. 2. Chronic anemia. 3. Hypertension - currently not being treated. 4. Hyperlipidemia. PAST SURGICAL HISTORY: Status post hepatic stenting and [facility] in 2014. MEDICATIONS: 1. Tramadol 50 mg p.o. q.12 hours p.r.n. pain. 2. Lyrica 75 mg p.o. b.i.d. 3. Pancrelipase 12,000 units p.o. with breakfast and lunch, 24,000 units with dinner. 4. Zofran ODT 4 mg p.o. q.6 hours p.r.n. nausea. 5. Zetia 10 mg p.o. daily. ALLERGIES: MORPHINE. FAMILY HISTORY: Unobtainable from the patient due to her lethargy. SOCIAL HISTORY: The patient has at least 30 to 40 pack year history of smoking , she quit smoking in 2000. She does not drink alcohol. 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 She is . She does indicate her is her healthcare proxy, though reportedly he has recently been quite ill. REVIEW OF SYSTEMS: The patient denies any fevers, chills, or anorexia. No chest pain, no palpitations, no cough, no shortness of breath. No nausea, vomiting, abdominal pain, constipation, diarrhea, or hematochezia. No hematuria. She does admit to occasional dysuria as noted above. No focal weakness. She does have numbness in her right lower extremity related to history of compartment syndrome in the right leg. No sudden change in the vision. No dysphagia. No joint pains or muscle pains. No rashes. No anxiety or depression. PHYSICAL EXAMINATION GENERAL: The patient is a well-developed elderly female, sitting up in the stretcher, in no acute distress. VITAL SIGNS: Blood pressure 104/48, pulse 69, respirations 14, temp 99.4, O2 sat 98% on room air. HEENT: The patient has no hair. Extraocular muscles are intact. Pupils are round. Oropharynx is clear. Oral mucosa is moist. The patient does have a few petechiae noted on the underside of her tongue. There is no submandibular, cervical, or supraclavicular adenopathy. Thyroid is not enlarged. No thyroid nodules are noted. PULMONARY: Clear to auscultation bilaterally. CARDIAC: Normal S1, S2. Regular rate and rhythm. I do not appreciate any murmurs. There is trace bilateral lower extremity edema. ABDOMEN: Bowel sounds are present. Soft, nontender, nondistended. MUSCULOSKELETAL: There is no cyanosis or clubbing of the digits. There is full active range of motion of all 4 extremities. SKIN: Warm and dry. I do not appreciate any rashes. NEUROLOGIC: Cranial nerves II through XII appeared to be grossly intact. Sensation is intact to light touch throughout. Strength is 5/5 and symmetric in both upper and lower extremities bilaterally. PSYCH: The patient is lethargic, but she does awake and answer questions, but promptly falls back asleep. DIAGNOSTIC STUDIES/LAB DATA: WBC 8.7, hemoglobin 8.8, hematocrit 27, platelets 158. INR 1.33. Sodium 135, potassium 3.6, chloride 105, CO2 24, BUN 11, creatinine 1.18, glucose 111, lactic acid 0.9, calcium 7.9. Bilirubin 1.0, AST 30, ALT 18, alk phos 186. Troponin 0.07. CRP 69.94. BNP 219. Albumin 2.9. Urinalysis reveals a specific gravity of 1.010, 2+ blood, positive for nitrites, positive for leukocyte esterase, wbc, and bacteria. Chest x-ray, no acute pulmonary process. EKG reveals a tachycardic rhythm, being read by the EKG machine is atrial fibrillation; however, it appears that there is a sinus followed by a PAC, followed by a sinus beat and PAC. This pattern repeats. I will confirm this with Cardiology. ASSESSMENT AND PLAN: Ms. Hilliard is a 76-year-old female with a history of pancreatic cancer, currently on palliative chemotherapy with Gemzar and Abraxane , followed by Dr. Sampson, who presents to emergency room with complaints of weakness and was found to be markedly tachycardic as well as have evidence of urinary tract infection. 1. Weakness. My suspicion is the patient may be volume deplete related to her infection as her creatinine is slightly up from her baseline. Additionally, she was tachycardic and does appear to have responded to diltiazem as well as IV fluids. My suspicion is the bulk of her weakness is related to her urinary tract infection. 2. Urinary tract infection. Based on the patient's previous microbiology data , I suspect her bacteria will be sensitive to ceftriaxone; therefore, she has been started on ceftriaxone 1 g IV daily. We will await the urine culture and sensitivities. 3. Elevated troponin. I suspect this is demand ischemia related to the patient 's infection and tachycardia that was noted on admission. I will get followup troponin this morning. Additionally, I will go ahead and order an echocardiogram. 4. Hypertension. The patient's blood pressure at this time is in fact low normal. This is likely related to the diltiazem she received in the emergency room. She will continue on IV fluids and we will monitor her blood pressure. 5. Hyperlipidemia. We will go ahead and continue the patient's Zetia. 6. DVT prophylaxis: According to the Adult Thrombosis Prophylaxis Risk Factor Assessment Guide, the patient has a total risk factor score of 6 making her at the highest risk. She will be placed on heparin 5000 units subcutaneous q.8 hours. 7. Code status is full and again, the patient indicates that her , Jesus, is her healthcare proxy. TIME SPENT: Sixty-five minutes were spent admitting this patient. [id number]/[facility] #: [id number] [facility]
--- NOTE | 2016-11-13 18:16 | ED ---
Farhan Dallas Soohyun, scribed for Vj Starks MD on 11/13/16 at 0832 . Progress - Progress Note Progress Note: Signed out at shift change. Pt has converted to sinus rhythm and is no longer afib. Pt is noted hypotensive at this moment. Hospitalist is paged at 0820 AM. Course/Dx - Course Course Of Treatment: This 76 y/o female is signed out to Dr. Starks at shift change at 0700 AM today. Pt is noted with hypotension. Pt has been chemically cardioverted to sinus rhythm and is no longer afib. Pt is a cancer patient with general weakness. Pt is noted with urosepsis. Dr. Ozuna, [facility] on-call, is consulted, who recommends consult with Dr. Sampson to see if he will admit the patient. Consultation: Dr. Ozuna at [address] Sampson at [address] Ozuna at 0854 AM - Diagnoses Provider Diagnoses: UTI (urinary tract infection), Sepsis, Chemotherapy follow-up examination, Pancreatic cancer, Atrial fibrillation with RVR - Provider Notifications Discussed Care Of Patient With: Lluvia Ozuna Time Discussed With Above Provider: 08:45 - Critical Care Time Critical Care Time: 30-74 min The documentation as recorded by the Farhan alvarez Soohyun accurately reflects the service I personally performed and the decisions made by Tereza alexander Drew, MD.
[2016-11-13] MEDS: Pregabalin CAP(*) 25 MG PO SCH (21:34)
[2016-11-13] MEDS: traMADol TAB* 50 MG PO SCH (21:36)
[2016-11-14] MEDS: Ondansetron INJ* 2 MG/ML VIAL IV PRN ×2 (03:29→17:26)
[2016-11-14] MEDS: Acetaminophen TAB* 325 MG PO PRN ×4 (04:24→21:34)
[2016-11-14] MEDS: Metoprolol Tartrate TAB* 25 MG PO SCH ×3 (04:55→19:43)
[2016-11-14] MEDS: Heparin VIAL(*) 5000 UNITS/ML VIAL (FIVE THOUSAND) SUBCUT SCH ×3 (05:08→21:32)
[2016-11-14 05:26] LABS: Hematocrit 24 % (35-47); Hemoglobin 7.7 g/dl (12.0-16.0); Mean Corpuscular HGB Conc 33 g/dl (31-36); Mean Corpuscular Hemoglobin 32 pg (27-31); Mean Corpuscular Volume 100 fL (80-97); Mean Platelet Volume 10 um3 (7.4-10.4); Red Blood Count 2.39 10^6/ul (4.0-5.4); Red Cell Distribution Width 23 % (10.5-15)
[2016-11-14 05:31] LABS: Comments Flag Yes
[2016-11-14 05:39] LABS: BUN/Creatinine Ratio 10.9 (8-20); Calcium 7.1 mg/dL (8.6-10.3); EGFR African American 68.9 (>60); EGFR Non-African American 53.6 (>60); Potassium 3.4 mmol/L (3.5-5.0)
[2016-11-14] MEDS: Pancrelipase CAP* 5,000 UNITS CAP PO SCH ×3 (08:38→17:26)
[2016-11-14] MEDS: Ezetimibe TAB* 10 MG PO SCH (08:39)
[2016-11-14] MEDS: traMADol TAB* 50 MG PO SCH ×2 (08:39→19:43)
[2016-11-14] MEDS: Pregabalin CAP(*) 25 MG PO SCH ×2 (08:41→19:42)
[2016-11-14] MEDS: NS 0.9% 1000 ML* 1,000 ML IV SCH ×2 (08:43→19:42)
[2016-11-14] MEDS: cefTRIAXone VIAL(*) 1,000 MG in NS 0.9% 50 ML* 50 ML IVPB SCH (13:16)
--- NOTE | 2016-11-14 14:03 | ECHO ---
Patient: WALDO ARAMBULA [facility] Rec#: [id number] : 1940 Date: 11/14/2016 Age: 76y Height: 165.1 cm / 65.0 in Weight: 77.11 kg / 170.0 lbs Sex: F BSA: 1.85 Room#: 441 Admit Date#: 11/13/2016 Type: Inpatient Referring: Lluvia Ozuna DO Reading: Chris Sauer MD Screedman/Laborer: Elzbieta Jackson RDCS,RDMS CC: Jesse Krause MD Transthoracic Echocardiogram Indication: Afib BP: 172/81 HR: 71 Rhythm: NSR with PVCs Findings History: Pancreatic cancer, palliative chemotherapy, anemia, HTN, HLD, former smoker Technical Comments: The study quality is good. Completed 1010 Left Ventricle: The left ventricular chamber size is normal. Mild concentric left ventricular hypertrophy is observed.Sigmoid septum without significant obstruction. The estimated ejection fraction is 50-55%. Subtle relative inferior basal hypokinesis in the 2 chamber view. The left ventricular diastolic filling pattern is consistent with pseudonormalization. Left Atrium: The left atrium is mildly dilated. Right Ventricle: The right ventricular chamber size and systolic function are within normal limits. The right ventricle wall thickness is mildly increased. Right Atrium: The right atrial cavity size is normal. Aortic Valve: The aortic valve is trileaflet. Systolic excursion of the aortic valve is normal. There is a trace of aortic regurgitation. There is no evidence of aortic stenosis. Mitral Valve: The mitral valve leaflets are mildly thickened. There is a trace of mitral regurgitation. There is no evidence of mitral stenosis. Tricuspid Valve: The tricuspid valve leaflets are normal. There is mild tricuspid regurgitation. There is evidence of mild pulmonary hypertension. Pulmonic Valve: The pulmonic valve appears normal. There is mild pulmonic regurgitation. Pericardium: There is no significant pericardial effusion. Aorta: The aortic root appears normal. There is no dilatation of the aortic arch. Pulmonary Artery: The main pulmonary artery appears normal. Venous: The inferior vena cava is dilated. There is less than 50% respiratory change in the inferior vena cava dimension. Conclusions The left ventricular chamber size is normal. Mild concentric left ventricular hypertrophy is observed.Sigmoid septum without significant obstruction. The estimated ejection fraction is 50-55%. Subtle relative inferior basal hypokinesis in the 2 chamber view. The left ventricular diastolic filling pattern is consistent with pseudonormalization. The left atrium is mildly dilated. The right ventricle wall thickness is mildly increased. There is mild tricuspid regurgitation.. There is evidence of mild pulmonary hypertension. There is mild tricuspid regurgitation. There is mild pulmonic regurgitation. Compared to 2013, the EF was higher 55-60% and the inferior hypokinesis was not noted then. Measurements Name Value Normal Range RVIDd (AP) 2D 1.9 cm (0.9 - 2.6) RVDdMajor (2D) 2.6 cm (2.2 - 4.4) RAd ISD 4CH 4.8 cm (3.4 - 4.9) RA (A4C)W 3.9 cm (2.9 - 4.6) IVSd (2D) 1.3 cm (0.6 - 1) LVPWd (2D) 1.3 cm (0.6 - 1) LVIDd (2D) 3.9 cm (3.6 - 5.4) LVIDs (2D) 2.9 cm - LV FS (2D) 26 % (25 - 45) Aortic Annulus 2.1 cm (1.4 - 2.6) Ao root diameter (2D) 2.7 cm (2.1 - 3.5) Ascending Ao 2.8 cm (2.1 - 3.4) Aortic arch 2.6 cm (1.8 - 3.4) LA dimension (AP) 2D 3 cm (2.3 - 3.8) LAd ISD 4CH 5.8 cm (2.9 - 5.3) LA ISD 4CH W 4.1 cm (2.5 - 4.5) Name Value Normal Range LA ESV SP 4CH (A/L) 50.49 ml - LA ESV SP 2CH (A/L) 53.3 ml - LA ESV BP (A/L) 52.66 ml - LA ESV BP (A/L) index 28.5 ml/m2 - LA ESV SP 4CH (MOD) 45.78 ml - LA ESV SP 2CH (MOD) 50.29 ml - Name Value Normal Range MV E-wave Vmax 0.6 m/sec - MV deceleration time 161 msec - MV A-wave Vmax 0.4 m/sec - MV E:A ratio 1.5 ratio - P. vein S-wave Vmax 0.5 m/sec - P. vein D-wave Vmax 0.3 m/sec - P. vein S:D Vmax ratio 1.6 ratio - P. vein A-wave duration 92.3 msec - LV septal e' Vmax 0.06 m/sec - LV lateral e' Vmax 0.06 m/sec - LV E:e' septal ratio 10 ratio - LV E:e' lateral ratio 10 ratio - Name Value Normal Range AV Vmax 1.3 m/sec - AV VTI 27.9 cm - AV peak gradient 7 mmHg - AV mean gradient 3.6 mmHg - LVOT Vmax 0.8 m/sec - LVOT VTI 19.5 cm - LVOT peak gradient 2.6 mmHg - LVOT mean gradient 1.8 mmHg - TIANNA Vmax 0.5 m/sec - Name Value Normal Range TR Vmax 2.9 m/sec - TR peak gradient 34 mmHg - RAP 3 mmHg - RVSP 37 mmHg - IVC diameter 2.4 cm - Name Value Normal Range PV Vmax 0.5 m/sec - PV peak gradient 1 mmHg -
[2016-11-15] MEDS: Metoprolol Tartrate TAB* 25 MG PO SCH (05:01)
[2016-11-15] MEDS: Heparin VIAL(*) 5000 UNITS/ML VIAL (FIVE THOUSAND) SUBCUT SCH ×3 (05:02→21:48)
[2016-11-15] MEDS: NS 0.9% 1000 ML* 1,000 ML IV SCH (05:08)
[2016-11-15] MEDS: Ezetimibe TAB* 10 MG PO SCH (08:32)
[2016-11-15] MEDS: Pregabalin CAP(*) 25 MG PO SCH ×2 (08:32→20:48)
[2016-11-15] MEDS: traMADol TAB* 50 MG PO SCH ×2 (08:32→20:47)
[2016-11-15] MEDS: Pancrelipase CAP* 5,000 UNITS CAP PO SCH ×3 (08:32→17:19)
[2016-11-15] MEDS: Ondansetron INJ* 2 MG/ML VIAL IV PRN ×2 (08:33→20:49)
[2016-11-15 09:01] LABS: Hematocrit 25 % (35-47); Hemoglobin 8.1 g/dl (12.0-16.0); Mean Corpuscular HGB Conc 32 g/dl (31-36); Mean Corpuscular Hemoglobin 32 pg (27-31); Mean Corpuscular Volume 100 fL (80-97); Mean Platelet Volume 10 um3 (7.4-10.4); Red Blood Count 2.49 10^6/ul (4.0-5.4); White Blood Count 8.5 10^3/ul (3.5-10.8)
[2016-11-15 09:02] LABS: Comments Flag Yes; Red Cell Distribution Width 23 % (10.5-15)
[2016-11-15 09:15] LABS: BUN/Creatinine Ratio 9.7 (8-20); Calcium 7.5 mg/dL (8.6-10.3); EGFR African American 67.4 (>60); EGFR Non-African American 52.4 (>60); Potassium 3.4 mmol/L (3.5-5.0)
--- NOTE | 2016-11-15 12:09 | RAD ---
INDICATION: Fever. COMPARISON: Comparison is made with a prior chest x-ray study from November 13, 2016. TECHNIQUE: Dual-energy PA and lateral views of the chest were obtained. FINDINGS: There is a power port central venous catheter entering on the left side. The catheter tip projects over the superior vena cava. The heart appears to be within normal limits in size. There are patchy infiltrates present in both lower lobes and a small left pleural effusion present. IMPRESSION: SMALL BILATERAL LOWER LOBE INFILTRATES AND SMALL LEFT PLEURAL EFFUSION, NEW FROM THE PRIOR STUDY.
[2016-11-15] MEDS: Metoprolol Tartrate TAB* 50 mg PO SCH ×2 (12:56→20:48)
[2016-11-15] MEDS: cefTRIAXone VIAL(*) 1,000 MG in NS 0.9% 50 ML* 50 ML IVPB SCH (12:57)
[2016-11-16] MEDS: Metoprolol Tartrate TAB* 50 mg PO SCH ×3 (04:01→20:32)
[2016-11-16 06:03] LABS: Hematocrit 23 % (35-47); Hemoglobin 7.4 g/dl (12.0-16.0); Mean Corpuscular HGB Conc 32 g/dl (31-36); Mean Corpuscular Hemoglobin 32 pg (27-31); Mean Corpuscular Volume 99 fL (80-97); Mean Platelet Volume 11 um3 (7.4-10.4); Red Blood Count 2.31 10^6/ul (4.0-5.4); White Blood Count 6.9 10^3/ul (3.5-10.8)
[2016-11-16 06:05] LABS: Comments Flag Yes; Red Cell Distribution Width 23 % (10.5-15)
[2016-11-16] MEDS: Heparin VIAL(*) 5000 UNITS/ML VIAL (FIVE THOUSAND) SUBCUT SCH ×2 (06:15→13:38)
[2016-11-16 06:19] LABS: BUN/Creatinine Ratio 8.4 (8-20); Calcium 7.5 mg/dL (8.6-10.3); EGFR African American 64.5 (>60); EGFR Non-African American 50.1 (>60); Potassium 3.3 mmol/L (3.5-5.0)
[2016-11-16] MEDS: Ezetimibe TAB* 10 MG PO SCH (08:12)
[2016-11-16] MEDS: Pancrelipase CAP* 5,000 UNITS CAP PO SCH ×3 (08:12→18:16)
[2016-11-16] MEDS: traMADol TAB* 50 MG PO SCH ×2 (08:12→20:33)
[2016-11-16] MEDS: Pregabalin CAP(*) 25 MG PO SCH ×2 (08:13→20:36)
[2016-11-16] MEDS: Ondansetron INJ* 2 MG/ML VIAL IV PRN (08:27)
[2016-11-16 09:40] LABS: Magnesium 1.4 mg/dL (1.9-2.7)
[2016-11-16] MEDS ORDERED: KCL 20 MEQ/100 ML IVPREMIX* 100 ML BAG IV SCH (11:00)
[2016-11-16] MEDS ORDERED: Magnesium Sulfate 4 GM IV IVPB ONE (11:00)
--- NOTE | 2016-11-16 11:33 | PN ---
Progress Note - Progress Note Date of Service: 11/16/16 SOAP: Subjective: feels worse today. more confused in the sense that she is having trouble putting stuff together (though is very coherent today). still in sinus but with arrhythmias. very fatigued. felt more wheezy and coughed more last night. Objective: Vital Signs Temp Pulse Resp BP Pulse Ox 99.0 F 70 17 169/74 92 11/16/16 07:28 11/16/16 07:28 11/16/16 10:12 11/16/16 07:28 11/16/16 07:28 lying flat in nad perr eomi op moist bibasilar rhonchi R>L s1 s2 with lots of ectopy soft nt +bs no le edema clean port A+O x 3 grossly nonfocal Laboratory Results - last 24 hr 11/16/16 11/16/16 05:40 05:40 WBC 6.9 RBC 2.31 L Hgb 7.4 L Hct 23 L MCV 99 H MCH 32 H MCHC 32 RDW 23 H Plt Count 198 MPV 11 H Neut % (Auto) 63.4 Lymph % (Auto) 12.6 L [place] % (Auto) 18.1 H Eos % (Auto) 4.6 Baso % (Auto) 1.3 Absolute Neuts (auto) 4.4 Absolute Lymphs (auto) 0.9 L Absolute Monos (auto) 1.3 H Absolute Eos (auto) 0.3 Absolute Basos (auto) 0.1 Absolute Nucleated RBC 0.01 Nucleated RBC % 0.1 Sodium 137 Potassium 3.3 L Chloride 110 Carbon Dioxide 22 Anion Gap 5 BUN 9 Creatinine 1.07 H Est GFR ( Amer) 64.5 Est GFR (Non-Af Amer) 50.1 BUN/Creatinine Ratio 8.4 Glucose 92 Calcium 7.5 L Magnesium 1.4 L Acetaminophen (Tylenol Tab*) 650 mg PO Q4H PRN PRN Reason: PAIN Last Admin: 11/14/16 21:34 Dose: 650 mg Ezetimibe (Zetia Tab*) 10 mg PO DAILY MICHAEL Last Admin: 11/16/16 08:12 Dose: 10 mg Heparin Sodium (Porcine) (Heparin Vial(*)) 5,000 units SUBCUT Q8HR MICHAEL Last Admin: 11/16/16 06:15 Dose: 5,000 units Heparin Sodium (Porcine) (Heparin Flush Port (Ivad)) 5 ml FLUSH DAILY MICHAEL PRN Reason: Protocol Ceftriaxone Sodium 1,000 mg/ (Sodium Chloride) 50 mls @ 200 mls/hr IVPB Q24H [facility] Last Admin: 11/15/16 12:57 Dose: 200 mls/hr Magnesium Sulfate (Magnesium Sulf 4 Gm/100 Ml Iv*) 4,000 mg in 100 mls @ 33.333 mls/hr IVPB ONCE ONE Stop: 11/16/16 13:59 Last Admin: 11/16/16 10:49 Dose: 33.333 mls/hr Metoprolol Tartrate (Lopressor Tab*) 50 mg PO Q8H MICHAEL Last Admin: 11/16/16 04:01 Dose: 50 mg Ondansetron HCl (Zofran Inj*) 4 mg IV Q6H PRN PRN Reason: NAUSEA Last Admin: 11/16/16 08:27 Dose: 4 mg Pancrelipase (Zenpep Delayed Cap*) 10,000 units PO TID WITH MEALS [facility] Last Admin: 11/16/16 08:12 Dose: 10,000 units Potassium Chloride (Potassium Chloride 20 Meq/100 Ml Ivpremix*) 20 meq IV ONCE MICHAEL Stop: 11/17/16 11:01 Pregabalin (Lyrica Cap(*)) 75 mg PO BID [facility] Last Admin: 11/16/16 08:13 Dose: 75 mg Tramadol HCl (Ultram*) 50 mg PO Q12HR [facility] Last Admin: 11/16/16 08:12 Dose: 50 mg Assessment: 76 yo F w pancreatic cancer on palliative gemcitabine/abraxane admitted with global weakness in the setting of a urinary tract infection now with hospital acquired pneumonia likely aspiration related given vomiting. She also had afib which has resolved. Plan: PNA: defervescing on ceftriaxone but if repeat fever will need to broaden e coli UTI: cowan sensitive, on appropriate antibiotics fatigue/weakness: likely exacerbated by chemotherapy induced anemia will give 1 u PRBC today hypokalemia and hypomagnesemia: will aggressively replete today given ectopy cont on telemetry afib: back in sinus. per Dr. Sampson will hold off on anticoagulation for now cont metoprolol aggressive electrolyte repletion full code heparin sc dvt prophyl
[2016-11-16] MEDS: cefTRIAXone VIAL(*) 1,000 MG in NS 0.9% 50 ML* 50 ML IVPB SCH (12:18)
[2016-11-16] MEDS: Rivaroxaban TAB(*) 20 MG TAB PO SCH (15:07)
[2016-11-17] MEDS: Metoprolol Tartrate TAB* 50 mg PO SCH ×3 (03:29→19:47)
[2016-11-17 05:27] LABS: Hematocrit 27 % (35-47); Hemoglobin 8.6 g/dl (12.0-16.0); Mean Corpuscular HGB Conc 33 g/dl (31-36); Mean Corpuscular Hemoglobin 31 pg (27-31); Mean Corpuscular Volume 96 fL (80-97); Mean Platelet Volume 10 um3 (7.4-10.4); Red Blood Count 2.77 10^6/ul (4.0-5.4); White Blood Count 5.7 10^3/ul (3.5-10.8)
[2016-11-17 05:30] LABS: Comments Flag Yes; Red Cell Distribution Width 22 % (10.5-15)
[2016-11-17 05:38] LABS: BUN/Creatinine Ratio 6.8 (8-20); Calcium 7.6 mg/dL (8.6-10.3); EGFR African American 67.4 (>60); EGFR Non-African American 52.4 (>60); Magnesium 2.2 mg/dL (1.9-2.7); Potassium 3.2 mmol/L (3.5-5.0)
[2016-11-17] MEDS: Ezetimibe TAB* 10 MG PO SCH (08:37)
[2016-11-17] MEDS: Pregabalin CAP(*) 25 MG PO SCH ×2 (08:37→19:48)
[2016-11-17] MEDS: Rivaroxaban TAB(*) 20 MG TAB PO SCH (08:37)
[2016-11-17] MEDS: Pancrelipase CAP* 5,000 UNITS CAP PO SCH ×3 (08:37→17:37)
--- NOTE | 2016-11-17 10:49 | PN ---
Progress Note - Progress Note Date of Service: 11/17/16 SOAP: Subjective: []Feels OK, very tired still. Has a strange feeling of needing to be somewhere , "can't quite explain." Denies anxiety or sensation of 'doom'. No chest pain or pressure. Has been getting up to walk in room and no issues, though gets fatigued and has not tried amb. in hallway. Potassium ordered yesterday not given. Medications: Acetaminophen (Tylenol Tab*) 650 mg PO Q4H PRN PRN Reason: PAIN Last Admin: 11/14/16 21:34 Dose: 650 mg Ezetimibe (Zetia Tab*) 10 mg PO DAILY [facility] Last Admin: 11/17/16 08:37 Dose: 10 mg Heparin Sodium (Porcine) (Heparin Flush Port (Ivad)) 5 ml FLUSH DAILY [facility] PRN Reason: Protocol Last Admin: 11/17/16 08:37 Dose: 5 ml Ceftriaxone Sodium 1,000 mg/ (Sodium Chloride) 50 mls @ 200 mls/hr IVPB Q24H [facility] Last Admin: 11/16/16 12:18 Dose: 200 mls/hr Potassium Chloride (Potassium Chloride 20 Meq/100 Ml Ivpremix*) 20 meq in 100 mls @ 50 mls/hr IV Q2H [facility] Stop: 11/17/16 16:31 Metoprolol Tartrate (Lopressor Tab*) 50 mg PO Q8H [facility] Last Admin: 11/17/16 03:29 Dose: 50 mg Ondansetron HCl (Zofran Inj*) 4 mg IV Q6H PRN PRN Reason: NAUSEA Last Admin: 11/16/16 08:27 Dose: 4 mg Pancrelipase (Zenpep Delayed Cap*) 10,000 units PO TID WITH MEALS [facility] Last Admin: 11/17/16 08:37 Dose: 10,000 units Pregabalin (Lyrica Cap(*)) 75 mg PO BID [facility] Last Admin: 11/17/16 08:37 Dose: 75 mg Rivaroxaban (Xarelto (*)) 20 mg PO DAILY [facility] Last Admin: 11/17/16 08:37 Dose: 20 mg Tramadol HCl (Ultram*) 50 mg PO BEDTIME [facility] Last Admin: 11/16/16 20:33 Dose: 50 mg Objective: [] Vital Signs Temp Pulse Resp BP Pulse Ox 98.3 F 63 15 160/86 93 11/17/16 07:26 11/17/16 07:26 11/17/16 08:37 11/17/16 07:38 11/17/16 07:26 A&Ox3, EOMI, [place], neuro grossly non-focal HRI, no murmur noted, notable ectopy -- Tele sinus with ectopy LS dim. bases, rare cough noted +BS, abd. soft and non-tender +PP=bilat., no edema noted Laboratory Results - last 24 hr 11/16/16 11/17/16 11/17/16 05:40 05:15 05:15 WBC 5.7 RBC 2.77 L Hgb 8.6 L Hct 27 L MCV 96 MCH 31 MCHC 33 RDW 22 H Plt Count 209 MPV 10 Neut % (Auto) 56.3 Lymph % (Auto) 16.1 L [place] % (Auto) 20.3 H Eos % (Auto) 5.9 Baso % (Auto) 1.4 Absolute Neuts (auto) 3.2 Absolute Lymphs (auto) 0.9 L Absolute Monos (auto) 1.2 H Absolute Eos (auto) 0.3 Absolute Basos (auto) 0.1 Absolute Nucleated RBC 0 Nucleated RBC % 0 Sodium 135 Potassium 3.2 L Chloride 109 Carbon Dioxide 23 Anion Gap 3 BUN 7 Creatinine 1.03 H Est GFR ( Amer) 67.4 Est GFR (Non-Af Amer) 52.4 BUN/Creatinine Ratio 6.8 L Glucose 92 Calcium 7.6 L Magnesium 2.2 Blood Type A Positive Antibody Screen Negative Crossmatch See Detail Assessment: [] Plan: []1. Hypokalemia: appears computer issue led to missed doses yesterday, investigating with team. Will replace with 60 mEq IV KCl now, discussed with nursing and pharmacy. Start PO replacement tomorrow. 2. A.Fib: sinus at this time and appears paraxosymal, cont. anti-coagulation, cont. tele while inpt., replace electrolytes 3. E.Coli UTI: resolved (UA negative 11/15) 4. Aspiration PNA: good coverage with IV Rocephin, today is D5 and tomorrow with transition to PO Augmentin 5. Fatigue: multi-factorial, however enc.'d attempting some ambulation today to help prevent further decompensation 6. HTN: goal of <150/90 for age, will add amlodipine 2.5 mg daily Disposition: D/C tomorrow following replacement of potassium and transition to PO meds <Ana Cristina Yanes - Last Filed: 11/17/16 11:00> - Progress Note SOAP: Subjective: [] Objective: [] Assessment: 76 yo F w pancreatic cancer on gemcitabine/abraxane. admitted with weakness related to UTI, developed aspiration PNA in hospital. clinically slowly improving. Plan: [] <Emmie Marroquin - Last Filed: 11/18/16 07:29>
[2016-11-17] MEDS: KCL 20 MEQ/100 ML IVPREMIX* 20 MEQ/100 ML BAG IV SCH ×3 (11:00→15:59)
[2016-11-17] MEDS ORDERED: amLODIPine TAB* 5 MG PO SCH ×2 (11:00→11:02)
[2016-11-17] MEDS: cefTRIAXone VIAL(*) 1,000 MG in NS 0.9% 50 ML* 50 ML IVPB SCH (12:00)
[2016-11-17] MEDS: traMADol TAB* 50 MG PO SCH (19:47)
[2016-11-18] MEDS: Metoprolol Tartrate TAB* 50 mg PO SCH ×2 (03:27→10:59)
[2016-11-18] MEDS: Pregabalin CAP(*) 25 MG PO SCH (08:31)
[2016-11-18] MEDS: Ezetimibe TAB* 10 MG PO SCH (08:33)
[2016-11-18] MEDS: Pancrelipase CAP* 5,000 UNITS CAP PO SCH ×2 (08:33→11:58)
[2016-11-18] MEDS: Rivaroxaban TAB(*) 20 MG TAB PO SCH (08:33)
[2016-11-18 10:18] LABS: BUN/Creatinine Ratio 5.1 (8-20); Calcium 7.9 mg/dL (8.6-10.3); EGFR African American 70.5 (>60); EGFR Non-African American 54.8 (>60); Potassium 3.6 mmol/L (3.5-5.0)
[2016-11-18] MEDS ORDERED: Potassium Chlor TAB* 10 MEQ TAB.ER PO SCH ×2 (11:00)
[2016-11-18 11:06] VITALS: BP 145/65
[2016-11-18 11:11] LABS: Magnesium 1.9 mg/dL (1.9-2.7)
--- NOTE | 2016-11-18 11:25 | DS ---
- Discharge Summary DISCHARGE SUMMARY Admission Date: 11/13/16 Discharge Date: 11/18/16 Discharge Diagnosis: 1. E.Coli UTI: resolved 2. Paroxysmal A.Fib: r/t stress from infection, now in sinus on Beta-jose, anti-coagulation resumed and will likely cont. indefinitely 3. Aspiration Pneumonia: secondary to emesis, resolving on abx. 4. Pancreatic Cancer: s/p 6 cycles of Gemcitabine & Abraxane with improved imaging on CT (done prior to admission for restaging) and plan to transition to single agent Gemcitabine following 1 week delay 5. Hypertension: was off tx. On admission now back on Beta-jose and yesterday re-started Calcium-channel jose, will follow as outpatient Discharge Medications: 1. Acetaminophen 650 mg PO q4hrs PRN pain 2. Metoprolol 50 mg PO every 6 hrs 3. Rivaroxaban 20 mg PO every day 4. Amlodipine 2.5 mg PO every day 5. Exetimibe 10 mg PO every day 6. Ondansetron ODT 4 mg PO q6hrs PRN nausea 7. Pancrelipase 12,000 u PO TID with meals 8. Tramadol 50 mg PO q6hrs PRN pain 9. Pregabalin 75 mg PO BID Hospital Course: Please see admission note for full H&P, however briefly Mrs. Hilliard is a patient followed by the oncology team for dx. recurrent pancreatic cancer ( whipple 12/2014) receiving palliative Gemcitabine and Abraxane s/p C6D15 on with re-staging scans completed on 10/11. She presented to the ER on 11/13/16 with weakness and was found to be quit lethargic on assessment though she admitted to some dysuria and per report there was a history of fever. During work-up she was tachycardic which initially was felt to be A.Fib and she received a dose of diltiazem and IV fluids with improvement. Her labs revealed an elevated troponin which was felt to be demand ischemia. She was admitted by the hospitalist team for IV abx. and telemetry monitoring. An echocardiogram completed later that day revealed an EF of 50-55%. Her telemetry strips initially were thought to be A.Fib, however ultimately revealed a sinus dysrhythmia noting frequent PACs. On review of the initial 12-lead EKG by the admitting MD and cardiology, she was actually in Sinus Tach with atrial bigeminy. On 11/14 the patient developed significant nausea and the following day a chest x-ray was obtained d/t persistent fevers which reveal infiltrates felt to be secondary to aspiration. Ultimately it was decided the IV Ceftriaxone provided good coverage and she received no additional abx. On she cont.d to feel poorly and was found to have hypokalemia and hypomagnesemia. With cont.d dysrhythmias she was given IV replacement and placed back on Xeralto which had been held since June 2016 d/t GI Bleed ( started initially for PE/DVT during cancer work-up in [place]). Unfortunately on 11/17 she remained weak and it was discovered that her potassium had not been replaced (due to computer/clerical error) and therefore stayed through the next 24 hours for IV potassium. Today she feels very well and has been able to get up and walk around the nursing unit. A repeat UA on 11/15 was negative for further bacteria, she has not had a fever in over 48hrs, and she denies any respiratory symptoms. She states good understanding of d/c home on PO antibiotics, resumption of BP meds, and continuing her anti-coagulation. She will follow-up with the oncology office on 11/22 to confirm cont.d improvement and plan to resume chemotherapy with single agent. D/C plan was reviewed at length and she denies further questions. >40min spent with >50% face to face counseling cc: Dr. Krause
[2016-11-18] MEDS: cefTRIAXone VIAL(*) 1,000 MG in NS 0.9% 50 ML* 50 ML IVPB SCH (11:58)
== END 2016-11-18 13:24 | disposition home or self-care (01) | DRG 689 ==
LOC: ED 04:57 → MEDTELE 09:05
PROVIDERS: ADMIT Hospitalist; ATTEND Internal Medicine Hematology & Oncology
PROC: 30233N1 Transfusion of Nonautologous Red Blood Cells into Peripheral Vein, Percutaneous Approach (ICD-10-PCS; principal; 2016-11-16)
DX: N39.0 Urinary tract infection, site not specified (principal); J69.0 Pneumonitis due to inhalation of food and vomit; C25.9 Malignant neoplasm of pancreas, unspecified; I48.0 Paroxysmal atrial fibrillation; E83.42 Hypomagnesemia; I24.8 Other forms of acute ischemic heart disease; D64.81 Anemia due to antineoplastic chemotherapy; B96.20 Unspecified Escherichia coli [E. coli] as the cause of diseases classified elsewhere; I10 Essential (primary) hypertension; E87.6 Hypokalemia; E78.5 Hyperlipidemia, unspecified; Z79.899 Other long term (current) drug therapy; Z88.5 Allergy status to narcotic agent; Z87.891 Personal history of nicotine dependence; T79.A0XD Compartment syndrome, unspecified, subsequent encounter; X58.XXXD Exposure to other specified factors, subsequent encounter; R74.8 Abnormal levels of other serum enzymes
CPT/HCPCS: 36415; 71010; 71020; 74177; 80048; 80053; 81003; 81015; 83605; 83735; 83880; 84484; 85025; 85027; 85610; 85730; 86140; 86850; 86900; 86901; 86922; 87040; 87077; 87086; 87186; 93005; 93306; 99232; A9270-GY; J0696; J1642; J1644; J2405; J2543; J3370; J3475; J3480; P9040; Q9967

== ENCOUNTER 2016-11-24 08:33 | Inpatient (IN) | payer MEDICARE ==
--- NOTE | 2016-11-24 09:29 | ED ---
Complex/Multi-Sys Presentation - HPI Summary HPI Summary: 76F w/ PMH of HTN and pancreatic CA presents with increased weakness today. She states that her entire body feels weak. She denies any pain. Her appetite is poor but remains unchanged. She did have one episode of vomiting and one episode of loose stools. She had a headache last week that resolved. She denies any known fever, cough, SOB, chest pain, abdominal pain, sinus congestions, sore throat. No one else is sick. She has chemo on Monday which she had and normally feels weak after but today it is worst. Dr ramos manages her pancreatic CA. She lives with her who is also sick and ambulate on her own around her house and a walker outside. - History Of Current Complaint Chief Complaint: EDGeneral Time Seen by Provider: 11/24/16 08:58 - Allergies/Home Medications Allergies/Adverse Reactions: Allergies Allergy/AdvReac Type Severity Reaction Status Date / Time Latex Allergy Blisters Verified 11/13/16 05:36 Morphine AdvReac Mild Nausea And Verified 11/10/16 12:09 Vomiting Home Medications: Home Medications traMADol TAB* [Ultram*] 50 mg PO Q6HR PRN 11/24/16 [History Confirmed 11/24/16] PMH/Surg Hx/FS Hx/Imm Hx Endocrine/Hematology History: Denies: Hx Diabetes Cardiovascular History: Reports: Hx Cardiac Arrest, Hx Hypercholesterolemia Denies: Hx Congestive Heart Failure, Hx Hypertension, Hx Pacemaker/ICD Respiratory History: Reports: Hx Pulmonary Embolism Denies: Hx Asthma History: Denies: Hx Renal Disease Sensory History: Reports: Hx Contacts or Glasses - glasses Denies: Hx Hearing Aid Opthamlomology History: Reports: Hx Contacts or Glasses - glasses Psychiatric History: Denies: Hx Panic Disorder - Cancer History Cancer Type, Location and Year: Pancreatic, chemo Hx Chemotherapy: Yes Hx Radiation Therapy: No - Surgical History Surgery Procedure, Year, and Place: APPY, cervical laminectomy c4,5,6,7/. PARTIAL THROIDECTOMY. COCCYX REMOVED. T&A. BUNIONECTOMY LEFT FOOT. LEFT BREAST BIOPSY. TONSILLECTOMY Infectious Disease History: No Infectious Disease History: Reports: Hx Shingles Denies: Traveled Outside the [place] in Last 30 Days - Family History Known Family History: Positive: Hypertension - Social History Alcohol Use: Occasionally Substance Use Type: Reports: None Smoking Status (MU): Former Smoker Review of Systems Negative: Fever Negative: Chest Pain Negative: Shortness Of Breath Negative: Abdominal Pain Positive: Weakness All Other Systems Reviewed And Are Negative: Yes Physical Exam Triage Information Reviewed: Yes Vital Signs On Initial Exam: Initial Vitals Temp Pulse Resp BP Pulse Ox 99.0 F 124 20 129/80 93 11/24/16 08:43 11/24/16 08:43 11/24/16 08:43 11/24/16 08:43 11/24/16 08:43 Vital Signs Reviewed: Yes Appearance: Positive: Ill-Appearing Skin: Positive: Warm, Dry Head/Face: Positive: Normal Head/Face Inspection Eyes: Positive: Normal, EOMI, KENDRA, Conjunctiva Clear ENT: Positive: Normal ENT inspection, Pharynx normal, TMs normal Respiratory/Lung Sounds: Positive: Clear to Auscultation, Breath Sounds Present Cardiovascular: Positive: Normal, RRR Abdomen Description: Positive: Nontender, Soft Bowel Sounds: Positive: Present Musculoskeletal: Positive: Strength/ROM Intact - upper and lower extremities - [place] Coma Scale Coma Scale Total: 15 Diagnostics - Vital Signs Vital Signs Temp Pulse Resp BP Pulse Ox 11/24/16 09:08 99.0 F 116 16 142/67 93 11/24/16 08:43 99.0 F 124 20 129/80 93 - Laboratory Result Diagrams: 11/24/16 10:30 11/24/16 10:30 Lab Statement: Any lab studies that have been ordered have been reviewed, and results considered in the medical decision making process. - CT chest CT Interpretation: No Acute Changes - IMPRESSION: 1. NO PULMONARY ARTERIAL FILLING DEFECT TO SUGGEST PULMONARY EMBOLISM. 2. SMALL LEFT PLEURAL EFFUSION CT Interpretation Completed By: Radiologist - EKG No standard instances Cardiac Rate: Tachycardia EKG Rhythm: Sinus Tachycardia ST Segment: Normal Ectopy: None EKG Comparison: No Significant Change Re-Evaluation - Re-Evaluation First Eval Re-Evaluation Time: 11:36 Change: Unchanged Comment: still tachycardia with 2 liter of fluid Complex Multi-Symp Course/Dx Course Of Treatment: 76F w/ PMH of HTN and pancreatic CA presents with increased weakness today. She states that her entire body feels weak. She denies any pain. Her appetite is poor but remains unchanged. She did have one episode of vomiting and one episode of loose stools. She had a headache last week that resolved. She denies any known fever, cough, SOB, chest pain, abdominal pain, sinus congestions, sore throat. No one else is sick. She has chemo on Monday which she had and normally feels weak after but today it is worst. Dr ramos manages her pancreatic CA. She lives with her who is also sick and ambulate on her own around her house and a walker outside. EKG sinus tachycardia. discussed with dr elmore recommends CTA due to persistent tachycardia and said to call onoclogy for admission. labs wbc 15. u/a blood no infection. spoke with dr tubbs will see in ED. patient will be admitted for elevated wbc, weakness, tachycardia. patient understands and agrees with plan. - Diagnoses Differential Diagnoses/HQI/PQRI: Sepsis, Urinary Tract Infection, Other - PE Provider Diagnoses: Weakness, Pancreatic cancer - Physician Notifications Discussed Care Of Patient With: dr tubbs Time Discussed With Above Provider: 11:45 - will see in ED Discharge - Discharge Plan Condition: Stable Disposition: ADMITTED TO [facility]
[2016-11-24] MEDS ORDERED: NS 0.9% 1000 ML* 1,000 ML IV ONE ×2 (09:57→10:37)
[2016-11-24 10:52] LABS: Hematocrit 31 % (35-47); Hemoglobin 9.8 g/dl (12.0-16.0); Mean Corpuscular HGB Conc 32 g/dl (31-36); Mean Corpuscular Hemoglobin 31 pg (27-31); Mean Corpuscular Volume 99 fL (80-97); Mean Platelet Volume 10 um3 (7.4-10.4); Red Blood Count 3.14 10^6/ul (4.0-5.4); Red Cell Distribution Width 22 % (10.5-15); White Blood Count 15.9 10^3/ul (3.5-10.8)
[2016-11-24 11:08] LABS: Albumin 2.7 g/dL (3.2-5.2); BUN/Creatinine Ratio 15.4 (8-20); C Reactive Protein 97.2 mg/L (< 5.00); Calcium 8.2 mg/dL (8.6-10.3); EGFR African American 66.6 (>60); EGFR Non-African American 51.8 (>60); Globulin 2.4 g/dL (2-4); Magnesium 1.6 mg/dL (1.9-2.7); Potassium 4.2 mmol/L (3.5-5.0); Total Protein 5.1 g/dL (6.4-8.9)
[2016-11-24 11:11] LABS: Urine Bacteria Absent (Absent); Urine Bilirubin Negative (Negative); Urine Glucose Negative (Negative); Urine Nitrite Negative (Negative)
[2016-11-24 11:13] LABS: Troponin I 0.04 ng/mL (<0.04)
[2016-11-24] MEDS ORDERED: Iodixanol* (CONTRAST) 320 MG/ML 100 ML SDV IV ONE (11:20)
[2016-11-24 11:34] LABS: TSH (Thyroid Stimulating Horm) 1.15 mcIU/mL (0.34-5.60)
[2016-11-24 11:37] LABS: Total Bilirubin 1.2 mg/dL (0.2-1.0)
--- NOTE | 2016-11-24 11:52 | RAD ---
HISTORY: Tachycardia, shortness of breath COMPARISONS: August 30, 2016 TECHNIQUE: Multiple contiguous axial CT scans of the chest were obtained after the administration of nonionic intravenous contrast, timed to the pulmonary arterial phase of contrast enhancement.. Coronal and sagittal multiplanar reformations are also submitted for review. FINDINGS: NECK AND THYROID: The left thyroid is not well visualized. The right thyroid measures multiple nodules measuring up to 0.8 cm. CHEST WALL: There is no lower cervical, axillary, or supraclavicular lymphadenopathy by size criteria. HEART AND PERICARDIUM: The heart is unremarkable. AORTA AND PULMONARY VASCULATURE: There is no pulmonary arterial filling defect to suggest pulmonary embolism. There is no linear filling defect within the aorta to suggest aortic dissection. There is atherosclerosis of the thoracic aorta MEDIASTINUM: There is no mediastinal lymphadenopathy by size criteria. RACHEL: There is no hilar lymphadenopathy by size criteria. AIRWAY AND ESOPHAGUS: The airway is unremarkable, without endobronchial filling defect. The esophagus is grossly normal. LUNG PARENCHYMA: There is minimal linear atelectasis of the right lung base. PLEURA: There is a small left pleural effusion UPPER ABDOMEN: The upper abdomen is unremarkable. BONES AND SOFT TISSUES: Degenerative changes are noted along the spine. OTHER: None. IMPRESSION: 1. NO PULMONARY ARTERIAL FILLING DEFECT TO SUGGEST PULMONARY EMBOLISM. 2. SMALL LEFT PLEURAL EFFUSION
[2016-11-24] MEDS ORDERED: Ondansetron ODT TAB* 4 MG PO PRN (12:37)
[2016-11-24] MEDS: traMADol TAB* 50 MG PO PRN (12:54)
[2016-11-24] MEDS: NS 0.9% 1000 ML* 1,000 ML IV SCH (15:12)
[2016-11-24] MEDS: cefTRIAXone VIAL(*) 1,000 MG in NS 0.9% 50 ML* 50 ML IVPB SCH (15:16)
[2016-11-24] MEDS: Metoprolol Tartrate TAB* 50 mg PO SCH ×2 (15:19→21:24)
[2016-11-24] MEDS: Acetaminophen TAB* 325 MG PO PRN (15:19)
[2016-11-24] MEDS ORDERED: Pancrelipase (NF) 12,000 UNITS CAP.DR PO SCH (17:00)
[2016-11-24] MEDS: Pancrelipase CAP* 5,000 UNITS CAP PO SCH (17:35)
[2016-11-24] MEDS: Pregabalin CAP(*) 25 MG PO SCH (21:24)
[2016-11-25] MEDS: traMADol TAB* 50 MG PO PRN ×2 (04:16→20:57)
[2016-11-25] MEDS: Metoprolol Tartrate TAB* 50 mg PO SCH ×3 (04:17→21:00)
[2016-11-25 06:05] LABS: Hematocrit 25 % (35-47); Hemoglobin 7.9 g/dl (12.0-16.0); Mean Corpuscular HGB Conc 31 g/dl (31-36); Mean Corpuscular Hemoglobin 31 pg (27-31); Mean Corpuscular Volume 98 fL (80-97); Mean Platelet Volume 11 um3 (7.4-10.4); Red Blood Count 2.56 10^6/ul (4.0-5.4); Red Cell Distribution Width 21 % (10.5-15); White Blood Count 19.8 10^3/ul (3.5-10.8)
[2016-11-25 06:18] LABS: Albumin 2.2 g/dL (3.2-5.2); BUN/Creatinine Ratio 17.3 (8-20); Calcium 7.4 mg/dL (8.6-10.3); EGFR African American 66.6 (>60); EGFR Non-African American 51.8 (>60); Globulin 2.1 g/dL (2-4); Total Bilirubin 0.9 mg/dL (0.2-1.0); Total Protein 4.3 g/dL (6.4-8.9)
[2016-11-25] MEDS: NS 0.9% 1000 ML* 1,000 ML IV SCH ×2 (07:16→20:59)
[2016-11-25] MEDS: Ezetimibe TAB* 10 MG PO SCH (07:54)
[2016-11-25] MEDS: amLODIPine TAB* 5 MG PO SCH (07:54)
[2016-11-25] MEDS: Pancrelipase CAP* 5,000 UNITS CAP PO SCH (07:54)
[2016-11-25] MEDS: Rivaroxaban TAB(*) 20 MG TAB PO SCH (07:54)
[2016-11-25] MEDS: Pregabalin CAP(*) 25 MG PO SCH ×2 (07:54→20:59)
[2016-11-25] MEDS: Pancrelipase (NF) 12,000 UNITS CAP.DR PO SCH ×3 (09:34→15:58)
[2016-11-25] MEDS: cefTRIAXone VIAL(*) 1,000 MG in NS 0.9% 50 ML* 50 ML IVPB SCH (14:48)
--- NOTE | 2016-11-25 17:18 | PN ---
Progress Note - Progress Note Date of Service: 11/25/16 SOAP: Subjective: []No better today then yesterday. Has cough and pain with deep breath. Breathing not good. Weak and not walking or getting out of bed. Has abdominal distention and pain Acetaminophen (Tylenol Tab*) 650 mg PO Q6H PRN PRN Reason: fever/pain/headaches Last Admin: 11/24/16 15:19 Dose: 650 mg Amlodipine Besylate (Norvasc Tab*) 2.5 mg PO DAILY [facility] Last Admin: 11/25/16 07:54 Dose: 2.5 mg Ezetimibe (Zetia Tab*) 10 mg PO DAILY [facility] Last Admin: 11/25/16 07:54 Dose: 10 mg Heparin Sodium (Porcine) (Heparin Flush Port (Ivad)) 5 ml FLUSH DAILY [facility] PRN Reason: Protocol Last Admin: 11/25/16 07:55 Dose: Not Given Sodium Chloride (Ns 0.9% 1000 Ml*) 1,000 mls @ 75 mls/hr IV PER RATE [facility] Last Admin: 11/25/16 07:16 Dose: 75 mls/hr Ceftriaxone Sodium 1,000 mg/ (Sodium Chloride) 50 mls @ 200 mls/hr IVPB Q24H [facility] Last Admin: 11/25/16 14:48 Dose: 200 mls/hr Metoprolol Tartrate (Lopressor Tab*) 50 mg PO Q8H [facility] Last Admin: 11/25/16 12:07 Dose: 50 mg Ondansetron HCl (Zofran Odt Tab*) 4 mg PO Q6H PRN PRN Reason: NAUSEA Ondansetron HCl (Zofran Inj*) 4 mg IV Q4H PRN PRN Reason: NAUSEA Pancrelipase (Creon (Nf)) 12,000 units PO TID WITH MEALS [facility] Last Admin: 11/25/16 15:58 Dose: 12,000 units Pregabalin (Lyrica Cap(*)) 75 mg PO BID [facility] Last Admin: 11/25/16 07:54 Dose: 75 mg Rivaroxaban (Xarelto (*)) 20 mg PO DAILY [facility] Last Admin: 11/25/16 07:54 Dose: 20 mg Tramadol HCl (Ultram*) 50 mg PO Q6HR PRN PRN Reason: PAIN Last Admin: 11/25/16 04:16 Dose: 50 mg Objective: [] Vital Signs Temp Pulse Resp BP Pulse Ox 98.2 F 73 17 163/71 94 11/25/16 15:48 11/25/16 15:48 11/25/16 15:48 11/25/16 15:48 11/25/16 15:48 HEENT: pale, mucosa dry, no lesions Crackles bilaterally, no wheezing, good BS RRR S1S2 +BS, mild distension Ext tr edema. Assessment: []76 year old with leukocytosis and fever. CTA with slight lower lobe infiltrate and differential includes bronchitis, alternative infection. Plan: []1. Fever. Continue Ceftriaxone and if improves will complete 14 day course of antibiotics. If continued fevers will look for alternative source. Follow leukocytosis. 2. Abd pain likely second to antibiotics, check C diff if diarrhea. 3. HTN. Stable on current medications, continue. 4. On xeralto, continue and follow renal function. 5. Pancreatic cancer, therapy on hold.
[2016-11-26] MEDS: Metoprolol Tartrate TAB* 50 mg PO SCH ×4 (04:51→20:59)
[2016-11-26 05:23] LABS: Hematocrit 23 % (35-47); Hemoglobin 7.4 g/dl (12.0-16.0); Mean Corpuscular HGB Conc 32 g/dl (31-36); Mean Corpuscular Hemoglobin 31 pg (27-31); Mean Corpuscular Volume 99 fL (80-97); Mean Platelet Volume 11 um3 (7.4-10.4); Red Blood Count 2.35 10^6/ul (4.0-5.4); Red Cell Distribution Width 21 % (10.5-15); White Blood Count 11.4 10^3/ul (3.5-10.8)
[2016-11-26] MEDS: traMADol TAB* 50 MG PO PRN (06:01)
[2016-11-26 06:45] LABS: BUN/Creatinine Ratio 18.4 (8-20); Calcium 7.5 mg/dL (8.6-10.3); EGFR African American 71.3 (>60); EGFR Non-African American 55.5 (>60); Potassium 3.8 mmol/L (3.5-5.0)
[2016-11-26] MEDS: Ezetimibe TAB* 10 MG PO SCH (07:43)
[2016-11-26] MEDS: amLODIPine TAB* 5 MG PO SCH (07:43)
[2016-11-26] MEDS: Pregabalin CAP(*) 25 MG PO SCH ×2 (07:43→20:59)
[2016-11-26] MEDS: Rivaroxaban TAB(*) 20 MG TAB PO SCH (07:43)
[2016-11-26] MEDS: Pancrelipase (NF) 12,000 UNITS CAP.DR PO SCH ×3 (07:47→17:00)
[2016-11-26] MEDS: Acetaminophen TAB* 325 MG PO PRN (07:47)
[2016-11-26] MEDS: NS 0.9% 1000 ML* 1,000 ML IV SCH (11:15)
[2016-11-26] MEDS ORDERED: Iodixanol* (CONTRAST) 320 MG/ML 100 ML SDV IV SCH (12:46)
[2016-11-26] MEDS: Ondansetron INJ* 2 MG/ML VIAL IV PRN (14:24)
[2016-11-26] MEDS: cefTRIAXone VIAL(*) 1,000 MG in NS 0.9% 50 ML* 50 ML IVPB SCH (14:24)
--- NOTE | 2016-11-26 16:53 | RAD ---
Indication: Abdominal pain. CT of the abdomen and pelvis was performed after oral and IV contrast administration. Coronal and sagittal reconstructed images were obtained. Comparison is made with previous exam dated November 10, 2016. There is bibasilar atelectasis. Moderate-sized bilateral pleural effusions are noted. This is new since prior exam. The liver is normal in size. No focal lesions are identified. No evidence of free air is noted. A small amount of perihepatic ascites is noted. The patient has had a Whipple's procedure. The pancreas is atrophic. The spleen is normal in size. No adrenal lesions are noted. The kidneys demonstrate symmetric nephrograms. No hydronephrosis of either kidney is noted. CT of the pelvis demonstrates no free fluid. Mesenteric edema is noted. The urinary bladder is unremarkable. Subcutaneous edema is noted. No free fluid is identified. IMPRESSION: There is new bilateral pleural effusion with bibasilar atelectasis. This is of moderate size. Nonspecific mesenteric and perinephric edema is noted. Subcutaneous edema is also noted. No definite fluid collections are identified. No evidence of bowel obstruction is noted. The patient is status post Whipple's procedure with resection of the pancreatic head. Findings appear similar to that seen previously.
[2016-11-27] MEDS ORDERED: Metoprolol Tartrate IV* 1 MG/ML 5 ML VIAL IV ONE (00:40)
[2016-11-27] MEDS: Acetaminophen TAB* 325 MG PO PRN (01:04)
[2016-11-27] MEDS: NS 0.9% 1000 ML* 1,000 ML IV SCH (02:51)
[2016-11-27] MEDS: Metoprolol Tartrate TAB* 50 mg PO SCH ×3 (04:49→22:16)
[2016-11-27 05:26] LABS: Hematocrit 24 % (35-47); Hemoglobin 7.9 g/dl (12.0-16.0); Mean Corpuscular HGB Conc 33 g/dl (31-36); Mean Corpuscular Hemoglobin 32 pg (27-31); Mean Corpuscular Volume 97 fL (80-97); Mean Platelet Volume 11 um3 (7.4-10.4); Red Blood Count 2.51 10^6/ul (4.0-5.4); Red Cell Distribution Width 21 % (10.5-15); White Blood Count 10.5 10^3/ul (3.5-10.8)
[2016-11-27 06:37] LABS: BUN/Creatinine Ratio 15.5 (8-20); Calcium 7.5 mg/dL (8.6-10.3); EGFR African American 85.2 (>60); EGFR Non-African American 66.3 (>60); Potassium 3.8 mmol/L (3.5-5.0)
[2016-11-27] MEDS: Ezetimibe TAB* 10 MG PO SCH (08:07)
[2016-11-27] MEDS: Pregabalin CAP(*) 25 MG PO SCH ×2 (08:07→22:07)
[2016-11-27] MEDS: Rivaroxaban TAB(*) 20 MG TAB PO SCH (08:07)
[2016-11-27] MEDS: amLODIPine TAB* 5 MG PO SCH ×2 (08:08→22:11)
[2016-11-27] MEDS: Pancrelipase (NF) 12,000 UNITS CAP.DR PO SCH ×3 (08:08→17:24)
[2016-11-27] MEDS: cefTRIAXone VIAL(*) 1,000 MG in NS 0.9% 50 ML* 50 ML IVPB SCH (14:55)
[2016-11-28] MEDS: Acetaminophen TAB* 325 MG PO PRN ×2 (03:49→17:35)
[2016-11-28] MEDS: Metoprolol Tartrate TAB* 50 mg PO SCH ×3 (04:24→21:29)
[2016-11-28] MEDS: Ondansetron INJ* 2 MG/ML VIAL IV PRN (04:56)
[2016-11-28 06:03] LABS: Hematocrit 28 % (35-47); Mean Corpuscular HGB Conc 33 g/dl (31-36); Mean Corpuscular Hemoglobin 31 pg (27-31); Mean Corpuscular Volume 96 fL (80-97); Mean Platelet Volume 11 um3 (7.4-10.4); Red Blood Count 2.87 10^6/ul (4.0-5.4); Red Cell Distribution Width 20 % (10.5-15); White Blood Count 8.8 10^3/ul (3.5-10.8)
[2016-11-28] MEDS: amLODIPine TAB* 5 MG PO SCH ×2 (08:40→21:28)
[2016-11-28] MEDS: Ezetimibe TAB* 10 MG PO SCH (08:40)
[2016-11-28] MEDS: Rivaroxaban TAB(*) 20 MG TAB PO SCH (08:40)
[2016-11-28] MEDS: Pancrelipase (NF) 12,000 UNITS CAP.DR PO SCH ×4 (08:42→17:41)
[2016-11-28] MEDS: Pregabalin CAP(*) 25 MG PO SCH ×2 (09:44→21:28)
[2016-11-28] MEDS: cefTRIAXone VIAL(*) 1,000 MG in NS 0.9% 50 ML* 50 ML IVPB SCH (15:22)
[2016-11-29] MEDS: Metoprolol Tartrate TAB* 50 mg PO SCH ×3 (04:47→20:10)
[2016-11-29 05:14] LABS: Hematocrit 25 % (35-47); Hemoglobin 8.3 g/dl (12.0-16.0); Mean Corpuscular HGB Conc 34 g/dl (31-36); Mean Corpuscular Hemoglobin 32 pg (27-31); Mean Corpuscular Volume 96 fL (80-97); Mean Platelet Volume 11 um3 (7.4-10.4); Red Blood Count 2.57 10^6/ul (4.0-5.4); Red Cell Distribution Width 21 % (10.5-15); White Blood Count 7.9 10^3/ul (3.5-10.8)
[2016-11-29 05:18] LABS: Comments Flag Yes
[2016-11-29 05:19] LABS: Add Diff/Slide Review? Slide Review Added
[2016-11-29 07:48] LABS: BUN/Creatinine Ratio 9.1 (8-20); Calcium 7.9 mg/dL (8.6-10.3); EGFR African American 70.5 (>60); EGFR Non-African American 54.8 (>60); Phosphorus 2.5 mg/dL (2.5-5.0); Potassium 3.2 mmol/L (3.5-5.0)
[2016-11-29] MEDS: Ezetimibe TAB* 10 MG PO SCH (08:44)
[2016-11-29] MEDS: amLODIPine TAB* 5 MG PO SCH ×2 (08:45→20:11)
[2016-11-29] MEDS: Rivaroxaban TAB(*) 20 MG TAB PO SCH (08:45)
[2016-11-29] MEDS: Pregabalin CAP(*) 25 MG PO SCH ×2 (08:45→20:10)
[2016-11-29] MEDS: Pancrelipase (NF) 12,000 UNITS CAP.DR PO SCH ×3 (08:51→17:08)
[2016-11-29] MEDS: Lactobacillus Acidophilu (GG)* 1 CAP CAP PO SCH ×2 (12:11→20:09)
[2016-11-29] MEDS: Potassium Chlor TAB* 20 MEQ TAB.ER PO SCH ×3 (15:10→21:28)
[2016-11-29] MEDS: traMADol TAB* 50 MG PO PRN (20:10)
[2016-11-30] MEDS: Metoprolol Tartrate TAB* 50 mg PO SCH ×2 (05:41→13:27)
[2016-11-30 06:06] LABS: EGFR African American 78.7 (>60); EGFR Non-African American 61.2 (>60); Potassium 3.7 mmol/L (3.5-5.0)
[2016-11-30] MEDS: Pregabalin CAP(*) 25 MG PO SCH (09:59)
[2016-11-30] MEDS: amLODIPine TAB* 5 MG PO SCH (10:00)
[2016-11-30] MEDS: Ezetimibe TAB* 10 MG PO SCH (10:00)
[2016-11-30] MEDS: Lactobacillus Acidophilu (GG)* 1 CAP CAP PO SCH (10:00)
[2016-11-30] MEDS: Rivaroxaban TAB(*) 20 MG TAB PO SCH (10:01)
[2016-11-30] MEDS: Pancrelipase (NF) 12,000 UNITS CAP.DR PO SCH ×2 (10:03→13:27)
[2016-11-30] MEDS ORDERED: Loperamide CAP* 2 MG PO PRN (10:08)
[2016-11-30 10:32] VITALS: BP 137/84
--- NOTE | 2016-12-01 02:44 | DS ---
DISCHARGE SUMMARY: DATE OF ADMISSION: 11/24/16 DATE OF DISCHARGE: 11/30/16 ATTENDING PHYSICIAN: Milton Sampson MD * (DICTATED BY KVNG ARRIETA) DISCHARGE DIAGNOSES: 1. Fever of unknown origin: Likely secondary to viral bronchitis, felt to be less likely pneumonia. 2. Pancreatic cancer: Maintenance gemcitabine, currently on hold and we will reevaluate next week. 3. Hypertension: Stable on current medications. DISCHARGE MEDICATIONS: 1. Acetaminophen 650 mg p.o. q.6 hours p.r.n. fever/pain/headaches, call for any fevers prior to taking. 2. Culturelle 1 cap p.o. b.i.d. 3. Loperamide 2 mg p.o. as directed, max daily dose 8 tabs. 4. Zetia 10 mg p.o. daily. 5. Ondansetron 4 mg sublingual q.6 hours p.r.n. nausea. 6. Creon 12,000 units p.o. t.i.d. with meals. 7. Lyrica 75 mg p.o. b.i.d. 8. Metoprolol 50 mg p.o. q.8 hours. 9. Rivaroxaban 20 mg p.o. daily. 10. Amlodipine 2.5 mg p.o. every day. 11. Tramadol 50 mg p.o. q.6 hours p.r.n. pain. HOSPITAL COURSE: Please see admission note for full H and P; however, briefly Ms. Hilliard is well known to our service due to her unfortunate diagnosis of pancreatic cancer, now status post Whipple in fall of 2014 and most recent imaging PAIGE and now on maintenance gemcitabine. She has been admitted recently due to fevers from 11/13/16 through 11/18/16, found to have UTI and pneumonia, with resolution on IV Rocephin. She was seen on 11/22/16 in our office in followup to her admission and resumed chemotherapy as noted previously on maintenance gemcitabine. Unfortunately, she presented to the ER early on the morning of 11/24/16 due to fever and significant weakness. CTA done in the ER revealed a small left pleural effusion and question of pneumonia. She was admitted to the hospital for IV antibiotics. During her admission, she developed abdominal pain and diarrhea; therefore, a CT scan of the abdomen and pelvis was completed on 11/26/16 with no evidence for acute findings. Stool samples obtained had not grown any antigens, although she did have a positive fecal lactoferrin. During her admission, she had low-grade fevers with one temperature of 102.4 on 11/28/16 at 3 a.m. in the morning, this appeared to resolve with Tylenol and did not recur. Over the next several days, Ms. Hilliard continued to improve, though question of a true underlying pneumonia was brought up due to unclear presence on imaging. Ultimately, Ms. Hilliard's antibiotics were discontinued yesterday and she continues to do very well now with no fevers over the last 24 hours, off antibiotics. Her abdominal pain has improved slightly and while she is still having urgency with stools, she is not having annemarie diarrhea. Plan of care was discussed in regards to discharge today and she is in agreement that she is ready to go home. She will be discharged home on all her home medications and will remain off antibiotics for now. She will follow up in our office on 12/05/16 to evaluate continuing further chemotherapy. Plan of care was reviewed at length and Ms. Hilliard denies further questions. TIME SPENT: Greater than 40 minutes spent with greater than 50% [id number] counseling. NARGIS TRIPP NP [id number]/[facility] #: [id number] SHANEKA
== END 2016-11-30 14:20 | disposition home health service (06) | DRG 202 ==
LOC: ED 08:33 → MEDTELE 12:34
PROVIDERS: ADMIT Internal Medicine Hematology & Oncology; ATTEND Internal Medicine Hematology & Oncology
DX: J20.8 Acute bronchitis due to other specified organisms (principal); C25.9 Malignant neoplasm of pancreas, unspecified; I95.9 Hypotension, unspecified; D64.9 Anemia, unspecified; I10 Essential (primary) hypertension; E89.0 Postprocedural hypothyroidism; R40.2412 Glasgow coma scale score 13-15, at arrival to emergency department; E78.5 Hyperlipidemia, unspecified; Z87.891 Personal history of nicotine dependence; Z88.5 Allergy status to narcotic agent; Z86.711 Personal history of pulmonary embolism; Z91.040 Latex allergy status; Z82.49 Family history of ischemic heart disease and other diseases of the circulatory system; Z86.19 Personal history of other infectious and parasitic diseases; Z72.89 Other problems related to lifestyle; R10.9 Unspecified abdominal pain; R19.7 Diarrhea, unspecified
CPT/HCPCS: 0521F; 1036F; 1125F; 36415; 36591; 71275; 74177; 80048; 80053; 81003; 81015; 83605; 83630; 83735; 84100; 84443; 84484; 85025; 85610; 85730; 86140; 86301; 87040; 87045; 87046; 87449; 87899; 93005; 96413; 99213; 99222; 99232; 99239; A9270-GY; G8427; J0696; J1642; J2405; J3475; J9201; Q0164; Q9967

== ENCOUNTER 2016-12-16 12:28 | Inpatient (IN) | payer MEDICARE ==
[2016-12-16] MEDS ORDERED: Ondansetron INJ* 2 MG/ML VIAL IV ONE (13:52)
[2016-12-16] MEDS ORDERED: NS 0.9% 1000 ML* 1,000 ML IV ONE (13:52)
--- NOTE | 2016-12-16 14:12 | RAD ---
HISTORY: Fever COMPARISONS: November 15, 2016 VIEWS: 1: frontal portable view of the chest at 2:00 PM FINDINGS: LINES AND TUBES: A left-sided chest port is noted with the tip overlying the superior vena cava.. CARDIOMEDIASTINAL SILHOUETTE: The cardiomediastinal silhouette is normal for portable technique. PLEURA: The costophrenic angles are sharp. No pleural abnormalities are noted. LUNG PARENCHYMA: The lungs are clear. ABDOMEN: The upper abdomen is clear. There is no subphrenic gas. BONES AND SOFT TISSUES: No bone or soft tissue abnormalities are noted. IMPRESSION: NO ACTIVE CARDIOPULMONARY DISEASE.
[2016-12-16 14:17] LABS: Comments Flag Yes; Hematocrit 33 % (35-47); Hemoglobin 10.8 g/dl (12.0-16.0); Mean Corpuscular HGB Conc 33 g/dl (31-36); Mean Corpuscular Hemoglobin 32 pg (27-31); Mean Corpuscular Volume 98 fL (80-97); Mean Platelet Volume 12 um3 (7.4-10.4); Red Blood Count 3.39 10^6/ul (4.0-5.4); Red Cell Distribution Width 19 % (10.5-15); White Blood Count 18.7 10^3/ul (3.5-10.8)
[2016-12-16 14:28] LABS: ALT 7 U/L (7-52); AST 15 U/L (13-39); Albumin 2.9 g/dL (3.2-5.2); Alkaline Phosphatase 153 U/L (34-104); Anion Gap 7 mmol/L (2-11); Blood Urea Nitrogen 19 mg/dL (6-24); C Reactive Protein 130.85 mg/L (< 5.00); CO2 Carbon Dioxide 23 mmol/L (22-32); Calcium 8.2 mg/dL (8.6-10.3); Chloride 106 mmol/L (101-111); Glucose 130 mg/dL (70-100); Lipase < 10 U/L (11.0-82.0); Potassium 3.7 mmol/L (3.5-5.0); Sodium 136 mmol/L (133-145); Total Protein 5.9 g/dL (6.4-8.9)
[2016-12-16] MEDS ORDERED: Levofloxacin 750 MG IVPREMIX(* 750 MG/150 ML BAG IVPB ONE (16:11)
[2016-12-16 17:05] LABS: Urine Bacteria 1+ (Absent); Urine Bilirubin Negative (Negative); Urine Glucose Negative (Negative); Urine Nitrite Negative (Negative)
[2016-12-16] MEDS ORDERED: Ondansetron ODT TAB* 4 MG PO PRN (18:27)
[2016-12-16] MEDS ORDERED: Loperamide CAP* 2 MG PO PRN (18:27)
[2016-12-16] MEDS ORDERED: NS 0.9% 1000 ML* 1,000 ML IV SCH (18:30)
[2016-12-16] MEDS ORDERED: Ondansetron INJ* 2 MG/ML VIAL ONE (18:35)
[2016-12-16] MEDS: Ondansetron INJ* 2 MG/ML VIAL IV PRN ×2 (18:39→23:49)
[2016-12-16] MEDS: Pregabalin CAP(*) 25 MG PO SCH (20:44)
[2016-12-16] MEDS: Metoprolol Tartrate TAB* 50 mg PO SCH ×2 (20:45→20:51)
[2016-12-16] MEDS: Acetaminophen TAB* 325 MG PO PRN (20:45)
[2016-12-16] MEDS: traMADol TAB* 50 MG PO PRN (20:46)
--- NOTE | 2016-12-16 22:20 | ED ---
Ronnie Dallas Alfonso, scribed for Salas Mcqueen MD on 12/16/16 at 1335 . Complex/Multi-Sys Presentation - HPI Summary HPI Summary: This patient is a 76 year old F BIBA to [facility] with a chief complaint of N/V/D since this morning. The patient rates the pain 0/10 in severity. Symptoms aggravated by nothing. Symptoms alleviated by nothing. Patient reports fever, weakness, and tiredness. PMHx of pancreatic CA (stopped chemo recently). - History Of Current Complaint Chief Complaint: EDAbdPain Time Seen by Provider: 12/16/16 13:25 Hx Obtained From: Patient Onset/Duration: Sudden Onset, Lasting Hours - morning, Still Present Timing: Constant Severity Currently: Moderate Severity Initially: Moderate Aggravating Factor(s): Nothing Alleviating Factor(s): Nothing Associated Signs And Symptoms: Positive: Other - Patient reports fever, weakness , and tiredness - Allergies/Home Medications Allergies/Adverse Reactions: Allergies Allergy/AdvReac Type Severity Reaction Status Date / Time Latex Allergy Blisters Verified 12/16/16 12:36 Morphine AdvReac Mild Nausea And Verified 12/16/16 12:36 Vomiting Home Medications: Home Medications Loperamide CAP* [Imodium CAP*] 2 mg PO Q6HR PRN MDD 8 mg 12/16/16 [History Confirmed 12/16/16] Potassium Chlor TAB* [Klor Con ER TAB*] 20 meq PO DAILY 12/16/16 [History Confirmed 12/16/16] PMH/Surg Hx/FS Hx/Imm Hx Endocrine/Hematology History: Denies: Hx Diabetes Cardiovascular History: Reports: Hx Cardiac Arrest, Hx Hypercholesterolemia Denies: Hx Congestive Heart Failure, Hx Hypertension, Hx Pacemaker/ICD Respiratory History: Reports: Hx Pulmonary Embolism Denies: Hx Asthma History: Denies: Hx Renal Disease Sensory History: Reports: Hx Contacts or Glasses - glasses Denies: Hx Hearing Aid Opthamlomology History: Reports: Hx Contacts or Glasses - glasses Psychiatric History: Denies: Hx Panic Disorder - Cancer History Cancer Type, Location and Year: Pancreatic, chemo Hx Chemotherapy: Yes Hx Radiation Therapy: No - Surgical History Surgery Procedure, Year, and Place: APPY, cervical laminectomy c4,5,6,7/. PARTIAL THROIDECTOMY. COCCYX REMOVED. T&A. BUNIONECTOMY LEFT FOOT. LEFT BREAST BIOPSY. TONSILLECTOMY Infectious Disease History: No Infectious Disease History: Reports: Hx Shingles Denies: Traveled Outside the [place] in Last 30 Days - Family History Known Family History: Positive: Hypertension - Social History Alcohol Use: Occasionally Substance Use Type: Reports: None Smoking Status (MU): Former Smoker Review of Systems Positive: Fever Positive: Vomiting, Diarrhea, Nausea Neurological: Other - Weakness and tiredness All Other Systems Reviewed And Are Negative: Yes Physical Exam Triage Information Reviewed: Yes Vital Signs On Initial Exam: Initial Vitals Temp Pulse Resp BP Pulse Ox 98.7 F 95 16 124/67 95 12/16/16 12:33 12/16/16 12:33 12/16/16 12:33 12/16/16 12:33 12/16/16 12:33 Vital Signs Reviewed: Yes Appearance: Positive: Well-Appearing, No Pain Distress Skin: Positive: Warm, Skin Color Reflects Adequate Perfusion, Dry Head/Face: Positive: Normal Head/Face Inspection Eyes: Positive: Normal ENT: Positive: Other - Dry oral mucosa Neck: Positive: Supple, Nontender Respiratory/Lung Sounds: Positive: Clear to Auscultation, Breath Sounds Present Cardiovascular: Positive: RRR Abdomen Description: Positive: Nontender, Soft Bowel Sounds: Positive: Present Musculoskeletal: Positive: Normal Neurological: Positive: Normal, Sensory/Motor Intact, Alert, Oriented to Person Place, Time, CN Intact II-III Psychiatric: Positive: Affect/Mood Appropriate - Kisha Coma Scale Coma Scale Total: 15 Diagnostics - Vital Signs Vital Signs Temp Pulse Resp BP Pulse Ox 12/16/16 12:33 98.7 F 95 16 124/67 95 - Laboratory Lab Results: Lab Results 12/16/16 12/16/16 12/16/16 Range/Units 13:45 13:45 13:45 WBC 18.7 H (3.5-10.8) 10^3/ul RBC 3.39 L (4.0-5.4) 10^6/ul Hgb 10.8 L (12.0-16.0) g/dl Hct 33 L (35-47) % MCV 98 H (80-97) fL MCH 32 H (27-31) pg MCHC 33 (31-36) g/dl RDW 19 H (10.5-15) % Plt Count 126 L (150-450) 10^3/ul MPV 12 H (7.4-10.4) um3 Neut % (Auto) 85.2 H (38-83) % Lymph % (Auto) 5.2 L (25-47) % [place] % (Auto) 8.5 (1-9) % Eos % (Auto) 0.3 (0-6) % Baso % (Auto) 0.8 (0-2) % Absolute Neuts (auto) 15.9 H (1.5-7.7) 10^3/ul Absolute Lymphs (auto) 1.0 (1.0-4.8) 10^3/ul Absolute Monos (auto) 1.6 H (0-0.8) 10^3/ul Absolute Eos (auto) 0.1 (0-0.6) 10^3/ul Absolute Basos (auto) 0.1 (0-0.2) 10^3/ul Absolute Nucleated RBC 0 10^3/ul Nucleated RBC % 0 Sodium 136 (133-145) mmol/L Potassium 3.7 (3.5-5.0) mmol/L Chloride 106 (101-111) mmol/L Carbon Dioxide 23 (22-32) mmol/L Anion Gap 7 (2-11) mmol/L BUN 19 (6-24) mg/dL Creatinine 1.46 H (0.51-0.95) mg/dL Est GFR ( Amer) 45.0 (>60) Est GFR (Non-Af Amer) 35.0 (>60) BUN/Creatinine Ratio 13.0 (8-20) Glucose 130 H (70-100) mg/dL Lactic Acid 1.5 (0.5-2.0) mmol/L Calcium 8.2 L (8.6-10.3) mg/dL Total Bilirubin 0.80 (0.2-1.0) mg/dL AST 15 (13-39) U/L ALT 7 (7-52) U/L Alkaline Phosphatase 153 H (34-104) U/L C-Reactive Protein 130.85 H (< 5.00) mg/L Total Protein 5.9 L (6.4-8.9) g/dL Albumin 2.9 L (3.2-5.2) g/dL Globulin 3.0 (2-4) g/dL Albumin/Globulin Ratio 1.0 (1-3) Lipase < 10 L (11.0-82.0) U/L Urine Color Urine Appearance Urine pH (5-9) Ur Specific [place] (1.010-1.030) Urine Protein (Negative) Urine Ketones (Negative) Urine Blood (Negative) Urine Nitrate (Negative) Urine Bilirubin (Negative) Urine Urobilinogen (Negative) Ur Leukocyte Esterase (Negative) Urine WBC (Auto) (Absent) Urine RBC (Auto) (Absent) Urine Bacteria (Absent) Urine Glucose (Negative) 12/16/16 Range/Units 16:25 WBC (3.5-10.8) 10^3/ul RBC (4.0-5.4) 10^6/ul Hgb (12.0-16.0) g/dl Hct (35-47) % MCV (80-97) fL MCH (27-31) pg MCHC (31-36) g/dl RDW (10.5-15) % Plt Count (150-450) 10^3/ul MPV (7.4-10.4) um3 Neut % (Auto) (38-83) % Lymph % (Auto) (25-47) % [place] % (Auto) (1-9) % Eos % (Auto) (0-6) % Baso % (Auto) (0-2) % Absolute Neuts (auto) (1.5-7.7) 10^3/ul Absolute Lymphs (auto) (1.0-4.8) 10^3/ul Absolute Monos (auto) (0-0.8) 10^3/ul Absolute Eos (auto) (0-0.6) 10^3/ul Absolute Basos (auto) (0-0.2) 10^3/ul Absolute Nucleated RBC 10^3/ul Nucleated RBC % Sodium (133-145) mmol/L Potassium (3.5-5.0) mmol/L Chloride (101-111) mmol/L Carbon Dioxide (22-32) mmol/L Anion Gap (2-11) mmol/L BUN (6-24) mg/dL Creatinine (0.51-0.95) mg/dL Est GFR ( Amer) (>60) Est GFR (Non-Af Amer) (>60) BUN/Creatinine Ratio (8-20) Glucose (70-100) mg/dL Lactic Acid (0.5-2.0) mmol/L Calcium (8.6-10.3) mg/dL Total Bilirubin (0.2-1.0) mg/dL AST (13-39) U/L ALT (7-52) U/L Alkaline Phosphatase (34-104) U/L C-Reactive Protein (< 5.00) mg/L Total Protein (6.4-8.9) g/dL Albumin (3.2-5.2) g/dL Globulin (2-4) g/dL Albumin/Globulin Ratio (1-3) Lipase (11.0-82.0) U/L Urine Color Yellow Urine Appearance Cloudy Urine pH 5.0 (5-9) Ur Specific [place] 1.013 (1.010-1.030) Urine Protein 2+(100 mg/dl) H (Negative) Urine Ketones Negative (Negative) Urine Blood 3+ H (Negative) Urine Nitrate Negative (Negative) Urine Bilirubin Negative (Negative) Urine Urobilinogen Negative (Negative) Ur Leukocyte Esterase Trace H (Negative) Urine WBC (Auto) 2+(11-20/hpf) H (Absent) Urine RBC (Auto) 3+(>10/hpf) H (Absent) Urine Bacteria 1+ H (Absent) Urine Glucose Negative (Negative) Result Diagrams: 12/16/16 13:45 12/16/16 13:45 Lab Statement: Any lab studies that have been ordered have been reviewed, and results considered in the medical decision making process. - Radiology CXR Radiology Interpretation Completed By: Radiologist - NO ACTIVE CARDIOPULMONARY DISEASE. ED physician has reviewed this radiology report and agrees. - EKG 1322 Cardiac Rate: Tachycardia - BPM 139 EKG Rhythm: Sinus Tachycardia ST Segment: Non-Specific Complex Multi-Symp Course/Dx Course Of Treatment: Ms. Hilliard presented feeling weak and nauseated. She was found to have a leukocytosis and fever and positive U/A. She was treated with IV NS, antibiotics and antiemetics but didn't improve much. She is being admitted by the oncologists. - Diagnoses Provider Diagnoses: UTI (urinary tract infection) - Physician Notifications Discussed Care Of Patient With: Milton Sampson Time Discussed With Above Provider: 16:10 Instructed by Provider To: Other - Consulted Dr. Sampson (oncologist) regarding the patient's conditon. Consulted Dr. Sampson again at 1727 regarding plan for admission. Discharge - Discharge Plan Condition: Stable Disposition: ADMITTED TO [facility] The documentation as recorded by the Ronnie alvarez Alfonso accurately reflects the service I personally performed and the decisions made by me, Salas Mcqueen MD.
[2016-12-17] MEDS: Acetaminophen TAB* 325 MG PO PRN (00:49)
--- NOTE | 2016-12-17 02:51 | HP ---
HISTORY AND PHYSICAL: DATE OF ADMISSION: 12/16/16 REASON FOR ADMISSION: Severe weakness and fatigue with inability to function at home along with severe diarrhea, urinary incontinence. Likely urinary tract infection and potentially urosepsis. HISTORY OF PRESENT ILLNESS: Tanika Hilliard is a 76-year-old who was found to have a pancreatic mass with ductal dilation in September of 2014. She was scheduled for a temporary biliary stent, but had a cardiac arrest and also DVT and PE. Surgery was then scheduled 2 months later in November of 2014, but was postponed due to Herpes zoster in the left thorax. 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 Surgeon questioned whether the margins were still positive at the time of surgery. She had 2/12 involved lymph nodes. In January of 2015, she went to [facility] in [place], [place] and received adjuvant chemotherapy per RTOG protocol 97-04 for one cycle with the Gemzar. On day 1 of a planned cycle 2, she developed a large hematoma in the hip and needed 5 units of packed red blood cells and then within the longterm in rehab for two and a half months with a compartment syndrome. On 07/13/15, she then was treated with radiation therapy with 5-FU. At the completion of this she had no signs of any recurrence and CA-19-9 had fallen from initial 2669 to 101. In early 2016, the patient developed adenopathy in the superior mesenteric region and also likely liver metastases. CA-99 had risen to 1770. She was treated with chemotherapy with Gemzar and Abraxane for 3 cycles as of July 2016. In the midst of this she was hospitalized with a GI bleed, but no source found on EGD or colonoscopy. She continued her chemotherapy through 6 cycles here in [place] with Gemzar and Abraxane with the CA-99 remaining about 200 through October of 2016. She was scheduled to be switched to this maintenance Gemzar, but then was hospitalized here 11/24/16 to 11/30/16 with fever of unknown origin likely of viral bronchitis, less likely pneumonia. CA-99 during that admission was 794. The patient improved slightly with a course of IV antibiotics and then oral antibiotics. The patient was seen back in the office on 12/14/16 reporting that when she left the hospital she had felt reasonably well, but symptoms had worsened over the subsequent 2 weeks. She did not have any fevers or any signs of infection at that point, no cough or shortness of breath or palpitations. She denies any abdominal pain. She reports that her bowels are mucusy. She had bowel movements about 2 times overnight, sometimes without warning, occasional loss of control of her stools and diarrhea. Appetite was down with some nausea and early satiety. She had vomited x1 three days prior to office visit of 12/14/16 and had other episodes of retching. Her weight had been down about 10 pounds. The patient at home had been using a walker to get to the bathroom which was less than 20 feet, but was spending almost all of her time in bed, eating meals in bed. She reports this had been the case not just since leaving the hospital, but has been the case for several months. On December 13, she was unable to get back to bed from the bathroom and 911 was called and they needed to assist her back to her bed. The patient and her reported that on the night of December 14 and again on the night of December 15, she was up frequently overnight with episodes of diarrhea, urinary incontinence, and fecal incontinence. Her was essentially unable to get her out of bed to the bathroom. This continued to worsen to the point where she could barely be mobile at all. Today he tried to get her to the bathroom and she had large amounts of fecal incontinence and inability to be mobile in spite of using a walker in his assistance. She developed pain in bilateral flank regions along with pain on urination and ongoing incontinence of stool and urine. She is unsure as to whether or not she had a fever at home. Due to her inability to function at home and to likely infection, she was brought to the emergency room by her . PAST MEDICAL HISTORY: Otherwise is significant for chronic anemia, hyperlipidemia, hypertension, status post hepatic stenting and status post Whipple as discussed above, hospitalized in August of 2016 with acute hypoxic respiratory failure, again hospitalized in October of 2016 with elevated troponin from demand ischemia along with urinary tract infection. MEDICATIONS: Included: 1. Amlodipine 2.5 mg daily. 2. Lomotil p.r.n. 3. Creon 24,000 units t.i.d. 4. Lopressor 50 mg t.i.d. 5. Lyrica 75 mg b.i.d. 6. Zofran 4 mg p.r.n. 7. Tramadol 50 mg q.6 hours p.r.n. 8. Xarelto 20 mg daily. 9. Zetia 10 mg daily. ALLERGIES: To MORPHINE and LATEX. REVIEW OF SYSTEMS: Extremely fatigued, unable to get out of bed. Denies any significant shortness of breath or chest pain. Denies any specific focal neurologic weakness. Does feel depressed. No major bruising or bleeding otherwise as discussed in the accompanied health history. PHYSICAL EXAMINATION VITAL SIGNS: Blood pressure 133/63, pulse 104, temperature afebrile at 98.7. HEENT: PERRLA, EOMI. No erythema or exudates. No scleral icterus. Dry mucous membranes. LUNGS: Clear. HEART: Regular, rate, and rhythm without murmurs, rubs, or gallops. ABDOMEN: Mild tenderness especially in the epigastrium without masses, guarding , or rebound. BACK: Mild tenderness over bilateral flanks. No tenderness over the spine. EXTREMITIES: Trace edema bilaterally. NEUROLOGIC: The patient is alert and oriented x3. LABORATORY STUDIES: CBC: White count 18,700, hematocrit 33, hemoglobin 10.8, platelet count 126,000 with a preponderance of neutrophils at 85%. Chemistry studies: Sodium 136, potassium 3.7, bicarb 23, chloride 106, BUN 19, creatinine 1.46 up from her baseline of 0.9 although it was 1.4 two days ago. Glucose 130, lactic acid 1.5 and on repeat 1.2. CRP 130, albumin 2.9. Recent CA-19-9 had been 794 during the previous hospitalization and as discussed with her and her we repeated this and it was 958 two days ago. IMPRESSION: A 76-year-old female with underlying metastatic pancreatic carcinoma. Although on recent imaging by CT scan on 11/26/16, there was no evidence of obvious progression, she clearly has had progression with the CA-99 elevated to about almost 1000 versus her baseline of 200. She clearly is too weak and fatigued and has too poor performance status to have any further chemotherapy for her pancreatic carcinoma. Even before this hospitalization, we discussed hospice as a reasonable option if the tumor marker were proven to be continuously elevated as it was on 12/14/16. Given her current symptoms of marked increase lethargy, weakness, and urinary symptoms; the patient is being treated with Levaquin. Dose is being adjusted for her elevated creatinine. Hopefully, she will improve somewhat with treatment of infection as I suspect will be found. She clearly is dehydrated both by physical exam and by elevated BUN and creatinine and will receive IV fluids judiciously at 75 mL per hour. The patient has been essentially spending most of her time in bed, now for several months as it turns out and currently I believe would be unable to return home given her severe weakness. I believe that once we have treated her current infection and rehydrated her, the best course of action would be for a hospice consult. She and her are in agreement with this. It is unclear as to what setting the hospice services would be best delivered in. It is possible this might be a longterm and her has actually questioned Seth. Hospice residence would also be an option and if she were to improve a fair amount then hospice at home might also be an option. Anticoagulation. The patient is on Xarelto. This will be continued, although at a reduced dose given her renal function. The patient has a health care proxy in place which is her . We discussed her code status in detail. She, her , and their niece are in agreement with a DNR status and a MOLST form is filled out for this. [id number]/[facility] #: [id number] MTDD
[2016-12-17 05:26] LABS: Add Diff/Slide Review? Manual Diff Added; Comments Flag Yes; Hematocrit 27 % (35-47); Hemoglobin 8.7 g/dl (12.0-16.0); Mean Corpuscular HGB Conc 33 g/dl (31-36); Mean Corpuscular Hemoglobin 32 pg (27-31); Mean Corpuscular Volume 98 fL (80-97); Mean Platelet Volume 11 um3 (7.4-10.4); Red Blood Count 2.72 10^6/ul (4.0-5.4); Red Cell Distribution Width 20 % (10.5-15); White Blood Count 24.4 10^3/ul (3.5-10.8)
[2016-12-17 05:40] LABS: BUN/Creatinine Ratio 13.6 (8-20); Calcium 7.5 mg/dL (8.6-10.3); EGFR African American 42.3 (>60); EGFR Non-African American 32.9 (>60); Potassium 3.2 mmol/L (3.5-5.0)
[2016-12-17 06:13] LABS: Immature Granulocytes 11 % (0-9); Neutrophil % 81 % (38-83); RBC Morphology Normal (Normal); Reactive Lymph % 1 % (0-6)
[2016-12-17] MEDS: amLODIPine TAB* 5 MG PO SCH (08:06)
[2016-12-17] MEDS: Metoprolol Tartrate TAB* 50 mg PO SCH ×2 (08:07→20:20)
[2016-12-17] MEDS: Pregabalin CAP(*) 25 MG PO SCH ×2 (08:07→20:19)
[2016-12-17] MEDS: Rivaroxaban TAB(*) 15 MG PO SCH (08:07)
[2016-12-17] MEDS: PTO:Pancrelipase (NF) 12,000 UNITS CAP.DR PO SCH ×3 (08:08→15:25)
[2016-12-17] MEDS: Ondansetron INJ* 2 MG/ML VIAL IV PRN (08:16)
[2016-12-17] MEDS ORDERED: Potassium Chlor TAB* 10 MEQ TAB.ER PO SCH (09:00)
[2016-12-17] MEDS ORDERED: NS 0.9% 1000 ML* 1,000 ML IV ONE (09:42)
--- NOTE | 2016-12-17 09:53 | PN ---
Progress Note - Progress Note Date of Service: 12/17/16 SOAP: Subjective: feels miserable. still w incontinence of stool and frequent diarrhea. denies dysuria today. +abdominal pain, bilateral lower quadrants. Objective: Vital Signs Temp Pulse Resp BP Pulse Ox 99.9 F 94 22 120/64 94 12/17/16 08:30 12/17/16 08:30 12/17/16 08:07 12/17/16 07:58 12/17/16 07:58 ill appearing perrla eomi op very dry CTA anteriorly s1 s2 nl soft, ttp bilateral lower quadrants, mild guarding, no rebound ++ bs no le edema A+O x 3, grossly nonfocal port clean Laboratory Results - last 24 hr 12/16/16 12/16/16 12/16/16 13:45 13:45 13:45 WBC 18.7 H RBC 3.39 L Hgb 10.8 L Hct 33 L MCV 98 H MCH 32 H MCHC 33 RDW 19 H Plt Count 126 L MPV 12 H Immature Gran % (Auto) Neut % (Auto) 85.2 H Lymph % (Auto) 5.2 L [place] % (Auto) 8.5 Eos % (Auto) 0.3 Baso % (Auto) 0.8 Absolute Neuts (auto) 15.9 H Absolute Lymphs (auto) 1.0 Absolute Monos (auto) 1.6 H Absolute Eos (auto) 0.1 Absolute Basos (auto) 0.1 Absolute Nucleated RBC 0 Neutrophils % Band Neutrophils % Lymphocytes % Reactive Lymphs % Monocytes % Nucleated RBC % 0 Normal RBC Morphology Sodium 136 Potassium 3.7 Chloride 106 Carbon Dioxide 23 Anion Gap 7 BUN 19 Creatinine 1.46 H Est GFR ( Amer) 45.0 Est GFR (Non-Af Amer) 35.0 BUN/Creatinine Ratio 13.0 Glucose 130 H Lactic Acid 1.5 Calcium 8.2 L Total Bilirubin 0.80 AST 15 ALT 7 Alkaline Phosphatase 153 H C-Reactive Protein 130.85 H Total Protein 5.9 L Albumin 2.9 L Globulin 3.0 Albumin/Globulin Ratio 1.0 Lipase < 10 L Urine Color Urine Appearance Urine pH Ur Specific [place] Urine Protein Urine Ketones Urine Blood Urine Nitrate Urine Bilirubin Urine Urobilinogen Ur Leukocyte Esterase Urine WBC (Auto) Urine RBC (Auto) Urine Bacteria Urine Glucose 12/16/16 12/16/16 12/17/16 16:25 18:57 05:15 WBC RBC Hgb Hct MCV MCH MCHC RDW Plt Count MPV Immature Gran % (Auto) Neut % (Auto) Lymph % (Auto) [place] % (Auto) Eos % (Auto) Baso % (Auto) Absolute Neuts (auto) Absolute Lymphs (auto) Absolute Monos (auto) Absolute Eos (auto) Absolute Basos (auto) Absolute Nucleated RBC Neutrophils % Band Neutrophils % Lymphocytes % Reactive Lymphs % Monocytes % Nucleated RBC % Normal RBC Morphology Sodium 135 Potassium 3.2 L Chloride 108 Carbon Dioxide 22 Anion Gap 5 BUN 21 Creatinine 1.54 H Est GFR ( Amer) 42.3 Est GFR (Non-Af Amer) 32.9 BUN/Creatinine Ratio 13.6 Glucose 134 H Lactic Acid 1.2 Calcium 7.5 L Total Bilirubin AST ALT Alkaline Phosphatase C-Reactive Protein Total Protein Albumin Globulin Albumin/Globulin Ratio Lipase Urine Color Yellow Urine Appearance Cloudy Urine pH 5.0 Ur Specific [place] 1.013 Urine Protein 2+(100 mg/dl) H Urine Ketones Negative Urine Blood 3+ H Urine Nitrate Negative Urine Bilirubin Negative Urine Urobilinogen Negative Ur Leukocyte Esterase Trace H Urine WBC (Auto) 2+(11-20/hpf) H Urine RBC (Auto) 3+(>10/hpf) H Urine Bacteria 1+ H Urine Glucose Negative 12/17/16 05:15 WBC 24.4 H RBC 2.72 L Hgb 8.7 L Hct 27 L MCV 98 H MCH 32 H MCHC 33 RDW 20 H Plt Count 99 L D MPV 11 H Immature Gran % (Auto) 11 H Neut % (Auto) Lymph % (Auto) [place] % (Auto) Eos % (Auto) Baso % (Auto) Absolute Neuts (auto) 22.6 H Absolute Lymphs (auto) 0.6 L Absolute Monos (auto) 1.1 H Absolute Eos (auto) 0 Absolute Basos (auto) 0.1 Absolute Nucleated RBC 0 Neutrophils % 81 Band Neutrophils % 11 H Lymphocytes % 3 L Reactive Lymphs % 1 Monocytes % 4 Nucleated RBC % Normal RBC Morphology Normal Sodium Potassium Chloride Carbon Dioxide Anion Gap BUN Creatinine Est GFR ( Amer) Est GFR (Non-Af Amer) BUN/Creatinine Ratio Glucose Lactic Acid Calcium Total Bilirubin AST ALT Alkaline Phosphatase C-Reactive Protein Total Protein Albumin Globulin Albumin/Globulin Ratio Lipase Urine Color Urine Appearance Urine pH Ur Specific [place] Urine Protein Urine Ketones Urine Blood Urine Nitrate Urine Bilirubin Urine Urobilinogen Ur Leukocyte Esterase Urine WBC (Auto) Urine RBC (Auto) Urine Bacteria Urine Glucose Acetaminophen (Tylenol Tab*) 650 mg PO Q6H PRN PRN Reason: fever/pain/headaches Last Admin: 12/17/16 00:49 Dose: 650 mg Amlodipine Besylate (Norvasc Tab*) 2.5 mg PO DAILY [facility] Last Admin: 12/17/16 08:06 Dose: 2.5 mg Heparin Sodium (Porcine) (Heparin Flush Port (Ivad)) 5 ml FLUSH DAILY [facility] PRN Reason: Protocol Last Admin: 12/17/16 08:09 Dose: Not Given Hydromorphone HCl (Dilaudid Iv*) 0.5 mg IV Q4H PRN PRN Reason: PAIN Levofloxacin/Dextrose (Levaquin 750 Mg Ivpremix(*)) 750 mg in 150 mls @ 100 mls /hr IVPB Q48H [facility] Potassium Chloride/Sodium Chloride (Ns 0.9% W/ 20 Meq Kcl 1000 Ml*) 1,000 mls @ 100 mls/hr IV PER RATE [facility] Sodium Chloride (Ns 0.9% 1000 Ml*) 1,000 mls @ 1,000 mls/hr IV ONCE ONE Stop: 12/17/16 10:41 Metronidazole/Sodium Chloride (Flagyl 500 Mg Ivpb*) 500 mg in 100 mls @ 100 mls /hr IVPB Q8H [facility] Loperamide HCl (Imodium Cap*) 2 mg PO Q6HR PRN PRN Reason: DIARRHEA Metoprolol Tartrate (Lopressor Tab*) 50 mg PO Q12HR [facility] Last Admin: 12/17/16 08:07 Dose: 50 mg Ondansetron HCl (Zofran Odt Tab*) 4 mg PO Q6H PRN PRN Reason: NAUSEA Ondansetron HCl (Zofran Inj*) 4 mg IV Q6H PRN PRN Reason: NAUSEA Last Admin: 12/17/16 08:16 Dose: 4 mg Pancrelipase (Creon (Nf)) 24,000 units PO TID WITH MEALS [facility] Last Admin: 12/17/16 08:08 Dose: Not Given Potassium Chloride (Klor Con Er Tab*) 40 meq PO DAILY [facility] Pregabalin (Lyrica Cap(*)) 75 mg PO BID [facility] Last Admin: 12/17/16 08:07 Dose: 75 mg Prochlorperazine Edisylate (Compazine Inj*) 10 mg IV Q6H PRN PRN Reason: NAUSEA/VOMITING Rivaroxaban (Xarelto(*)) 15 mg PO DAILY [facility] Last Admin: 12/17/16 08:07 Dose: 15 mg Tramadol HCl (Ultram*) 50 mg PO Q6HR PRN PRN Reason: PAIN Last Admin: 12/16/16 20:46 Dose: 50 mg Assessment: 76 yo F w metastatic pancreatic cancer and a deteriorating performance status, with recent admission for viral PNA vs. bacterial treated with antibiotics now presenting with fevers, fecal incontinence, diarrhea, and dysuria. I am concerned with her elevated WBC and bandemia along with her abdominal pain that she may now have c diff. Plan: -c diff precautions -stool for antigen -start flagyl 500 mg iv tid -cont levaquin for possible UTI (E coli UTI in past, pansensitive) -fu cultures -CT A/P with PO contrast only -fluid bolus for acute prerenal azotemia -hypokalemia likely related to frequent diarrhea, will replete PO and IV -check magnesium level As per Dr. Sampson's thorough documentation and consultation, patient with PS of 3 -4 and not appropriate for further palliative chemotherapy for her cancer. We will try to "turn around" this acute event in goals of going to hospice. If she does not improve over the next 48-72 hours we will likely reevaluate. -DNR
[2016-12-17] MEDS: HYDROmorphone* 1 MG/ML 1 ML SYR IV PRN ×2 (10:15→21:02)
[2016-12-17 10:45] LABS: Magnesium 1.5 mg/dL (1.9-2.7)
[2016-12-17] MEDS: NS 0.9% w/ 20 Meq KCL 1000 ML* 1,000 ML IV SCH (11:35)
[2016-12-17] MEDS: metroNIDAZOLE IV 500 MG/100ML* 500 MG/100 ML BAG IVPB SCH ×2 (11:35→17:26)
[2016-12-17] MEDS: PROCHLORPERAZINE INJ 5 MG/ML 2 ML VIAL IV PRN (11:49)
[2016-12-18] MEDS: NS 0.9% w/ 20 Meq KCL 1000 ML* 1,000 ML IV SCH (00:04)
[2016-12-18] MEDS: metroNIDAZOLE IV 500 MG/100ML* 500 MG/100 ML BAG IVPB SCH ×4 (01:58→18:14)
[2016-12-18] MEDS: HYDROmorphone* 1 MG/ML 1 ML SYR IV PRN ×2 (03:32→20:20)
[2016-12-18] MEDS: Ondansetron INJ* 2 MG/ML VIAL IV PRN (03:44)
[2016-12-18 05:42] LABS: Hematocrit 26 % (35-47); Hemoglobin 8.2 g/dl (12.0-16.0); Mean Corpuscular HGB Conc 32 g/dl (31-36); Mean Corpuscular Hemoglobin 31 pg (27-31); Mean Corpuscular Volume 98 fL (80-97); Mean Platelet Volume 12 um3 (7.4-10.4); Red Blood Count 2.66 10^6/ul (4.0-5.4); Red Cell Distribution Width 20 % (10.5-15); White Blood Count 27.9 10^3/ul (3.5-10.8)
[2016-12-18 05:45] LABS: Add Diff/Slide Review? Slide Review Added; Comments Flag Yes
[2016-12-18 05:51] LABS: BUN/Creatinine Ratio 17.2 (8-20); Calcium 7.7 mg/dL (8.6-10.3); EGFR African American 41.4 (>60); EGFR Non-African American 32.2 (>60); Magnesium 1.6 mg/dL (1.9-2.7); Potassium 3.4 mmol/L (3.5-5.0)
[2016-12-18] MEDS: PROCHLORPERAZINE INJ 5 MG/ML 2 ML VIAL IV PRN ×2 (07:09→21:23)
[2016-12-18] MEDS: PTO:Pancrelipase (NF) 12,000 UNITS CAP.DR PO SCH ×3 (07:14→16:55)
[2016-12-18] MEDS ORDERED: Magnesium Sulf 4 GM/100 ML IV* 4,000 MG/100 ML BAG IVPB ONE (08:11)
--- NOTE | 2016-12-18 08:12 | PN ---
Progress Note - Progress Note Date of Service: 12/18/16 SOAP: Subjective: stool positive for c diff. improving on flagyl (no incontinence, now can make it to the toilet but still having moderate amounts of diarrhea). abdominal pain present but improving. defervesced. still vomited this am. good urination without pain or incontinence this am. Objective: Vital Signs Temp Pulse Resp BP Pulse Ox 97.5 F 73 18 110/54 95 12/18/16 03:26 12/18/16 03:26 12/18/16 04:32 12/18/16 03:26 12/18/16 03:26 lying flat, appears more comfortable today perr eomi op more moist today cta anteriorly s1 s2 nl soft, ttp throughout, no guarding today no le edema A+O x 3, nonfocal neurological exam Laboratory Results - last 24 hr 12/17/16 12/18/16 12/18/16 05:15 05:15 05:20 WBC 27.9 H RBC 2.66 L Hgb 8.2 L Hct 26 L MCV 98 H MCH 31 MCHC 32 RDW 20 H Plt Count 105 L MPV 12 H Neut % (Auto) 92.5 H Lymph % (Auto) 3.5 L [place] % (Auto) 3.6 Eos % (Auto) 0.3 Baso % (Auto) 0.1 Absolute Neuts (auto) 25.8 H Absolute Lymphs (auto) 1.0 Absolute Monos (auto) 1.0 H Absolute Eos (auto) 0.1 Absolute Basos (auto) 0 Absolute Nucleated RBC 0.01 Nucleated RBC % 0 Sodium 137 Potassium 3.4 L Chloride 112 H Carbon Dioxide 21 L Anion Gap 4 BUN 27 H Creatinine 1.57 H Est GFR ( Amer) 41.4 Est GFR (Non-Af Amer) 32.2 BUN/Creatinine Ratio 17.2 Glucose 111 H Calcium 7.7 L Magnesium 1.5 L 1.6 L Acetaminophen (Tylenol Tab*) 650 mg PO Q6H PRN PRN Reason: fever/pain/headaches Last Admin: 12/17/16 00:49 Dose: 650 mg Amlodipine Besylate (Norvasc Tab*) 2.5 mg PO DAILY [facility] Last Admin: 12/17/16 08:06 Dose: 2.5 mg Heparin Sodium (Porcine) (Heparin Flush Port (Ivad)) 5 ml FLUSH DAILY [facility] PRN Reason: Protocol Last Admin: 12/17/16 08:09 Dose: Not Given Hydromorphone HCl (Dilaudid Iv*) 0.5 mg IV Q4H PRN PRN Reason: PAIN Last Admin: 12/18/16 03:32 Dose: 0.5 mg Levofloxacin/Dextrose (Levaquin 750 Mg Ivpremix(*)) 750 mg in 150 mls @ 100 mls /hr IVPB Q48H [facility] Potassium Chloride/Sodium Chloride (Ns 0.9% W/ 20 Meq Kcl 1000 Ml*) 1,000 mls @ 100 mls/hr IV PER RATE [facility] Last Admin: 12/18/16 00:04 Dose: 100 mls/hr Metronidazole/Sodium Chloride (Flagyl 500 Mg Ivpb*) 500 mg in 100 mls @ 100 mls /hr IVPB Q8H [facility] Last Admin: 12/18/16 01:58 Dose: 100 mls/hr Loperamide HCl (Imodium Cap*) 2 mg PO Q6HR PRN PRN Reason: DIARRHEA Metoprolol Tartrate (Lopressor Tab*) 50 mg PO Q12HR [facility] Last Admin: 12/17/16 20:20 Dose: Not Given Ondansetron HCl (Zofran Odt Tab*) 4 mg PO Q6H PRN PRN Reason: NAUSEA Ondansetron HCl (Zofran Inj*) 4 mg IV Q6H PRN PRN Reason: NAUSEA Last Admin: 12/18/16 03:44 Dose: 4 mg Pancrelipase (Creon (Nf)) 24,000 units PO TID WITH MEALS [facility] Last Admin: 12/18/16 07:14 Dose: Not Given Potassium Chloride (Klor Con Er Tab*) 40 meq PO DAILY [facility] Pregabalin (Lyrica Cap(*)) 75 mg PO BID [facility] Last Admin: 12/17/16 20:19 Dose: 75 mg Prochlorperazine Edisylate (Compazine Inj*) 10 mg IV Q6H PRN PRN Reason: NAUSEA/VOMITING Last Admin: 12/18/16 07:09 Dose: 10 mg Rivaroxaban (Xarelto(*)) 15 mg PO DAILY [facility] Last Admin: 12/17/16 08:07 Dose: 15 mg Tramadol HCl (Ultram*) 50 mg PO Q6HR PRN PRN Reason: PAIN Last Admin: 12/16/16 20:46 Dose: 50 mg Assessment: 76 yo F w metastatic pancreatic cancer and a deteriorating performance status, with recent admission for viral PNA vs. bacterial treated with antibiotics now presenting with fevers, fecal incontinence, diarrhea, and dysuria, with stool consistent with c diff. Plan: -c diff precautions -flagyl 500 mg iv tid -cont levaquin for possible UTI (per micro plate growing >100k something, to be determined later today) -fu cultures -hypokalemia likely related to frequent diarrhea, will replete PO and IV -replete magnesium IV ARF: prerenal azotemia, unfortunately not improving as of yet so there may be some component of ATN -cont hydration xeralto, dose reduced, for DVT As per Dr. Sampson's thorough documentation and consultation, patient with PS of 3 -4 and not appropriate for further palliative chemotherapy for her cancer. We will try to "turn around" this acute event in goals of going to hospice. If she does not improve over the next 48 hours we will likely reevaluate. -DNR
[2016-12-18] MEDS: Potassium Chlor TAB* 10 MEQ TAB.ER PO SCH (08:53)
[2016-12-18] MEDS: Rivaroxaban TAB(*) 15 MG PO SCH (08:53)
[2016-12-18] MEDS: Metoprolol Tartrate TAB* 50 mg PO SCH ×2 (08:53→20:21)
[2016-12-18] MEDS: amLODIPine TAB* 5 MG PO SCH (08:53)
[2016-12-18] MEDS: NS 0.9% w/ 40 Meq KCL 1000 ML* 1,000 ML IV SCH ×2 (08:53→22:20)
[2016-12-18] MEDS: Pregabalin CAP(*) 25 MG PO SCH ×2 (08:54→20:24)
[2016-12-18] MEDS ORDERED: Levofloxacin 750 MG IVPREMIX(* 750 MG/150 ML BAG IVPB SCH (17:00)
[2016-12-19] MEDS: Ondansetron INJ* 2 MG/ML VIAL IV PRN ×2 (00:13→11:01)
[2016-12-19] MEDS: metroNIDAZOLE IV 500 MG/100ML* 500 MG/100 ML BAG IVPB SCH ×3 (02:01→17:42)
[2016-12-19] MEDS: PROCHLORPERAZINE INJ 5 MG/ML 2 ML VIAL IV PRN (03:48)
--- NOTE | 2016-12-19 08:18 | PN ---
Progress Note - Progress Note Date of Service: 12/19/16 SOAP: Subjective: nauseous several times over night but relates this to moving the head of her bed too quickly. still w diarrhea but much less voluminous and less numerous. +lower back and hip pain from lying in bed constantly Objective: Vital Signs Temp Pulse Resp BP Pulse Ox 97.6 F 72 21 108/70 96 12/19/16 07:47 12/19/16 07:47 12/19/16 07:47 12/19/16 07:15 12/19/16 07:47 lying flat, uncomfortable appearing perr eomi op moist CTA anteriorly s1 s2 nl softer today, less tender, no guarding no le edema A+Ox 3, globally weak but nonfocal port clean Acetaminophen (Tylenol Tab*) 650 mg PO Q6H PRN PRN Reason: fever/pain/headaches Last Admin: 12/17/16 00:49 Dose: 650 mg Heparin Sodium (Porcine) (Heparin Flush Port (Ivad)) 5 ml FLUSH DAILY [facility] PRN Reason: Protocol Last Admin: 12/19/16 08:20 Dose: Not Given Hydromorphone HCl (Dilaudid Iv*) 0.5 mg IV Q4H PRN PRN Reason: PAIN Last Admin: 12/18/16 20:20 Dose: 0.5 mg Metronidazole/Sodium Chloride (Flagyl 500 Mg Ivpb*) 500 mg in 100 mls @ 100 mls /hr IVPB Q8H [facility] Last Admin: 12/19/16 02:01 Dose: 100 mls/hr Potassium Chloride/Sodium Chloride (Ns 0.9% W/ 40 Meq Kcl 1000 Ml*) 1,000 mls @ 125 mls/hr IV PER RATE [facility] Last Admin: 12/18/16 22:20 Dose: 125 mls/hr Levofloxacin/Dextrose (Levaquin 500 Mg Ivpremix(*)) 500 mg in 100 mls @ 100 mls /hr IVPB Q48H [facility] Loperamide HCl (Imodium Cap*) 2 mg PO Q6HR PRN PRN Reason: DIARRHEA Metoprolol Tartrate (Lopressor Tab*) 50 mg PO Q12HR [facility] Last Admin: 12/18/16 20:21 Dose: 50 mg Ondansetron HCl (Zofran Odt Tab*) 4 mg PO Q6H PRN PRN Reason: NAUSEA Ondansetron HCl (Zofran Inj*) 4 mg IV Q6H PRN PRN Reason: NAUSEA Last Admin: 12/19/16 00:13 Dose: 4 mg Pancrelipase (Creon (Nf)) 24,000 units PO TID WITH MEALS [facility] Last Admin: 12/18/16 16:55 Dose: 24,000 units Potassium Chloride (Klor Con Er Tab*) 40 meq PO DAILY [facility] Last Admin: 12/18/16 08:53 Dose: 40 meq Pregabalin (Lyrica Cap(*)) 75 mg PO BID [facility] Last Admin: 12/18/16 20:24 Dose: 75 mg Prochlorperazine Edisylate (Compazine Inj*) 10 mg IV Q6H PRN PRN Reason: NAUSEA/VOMITING Last Admin: 12/19/16 03:48 Dose: 10 mg Rivaroxaban (Xarelto(*)) 15 mg PO DAILY [facility] Last Admin: 12/18/16 08:53 Dose: 15 mg Tramadol HCl (Ultram*) 50 mg PO Q6HR PRN PRN Reason: PAIN Last Admin: 12/16/16 20:46 Dose: 50 mg Assessment: 76 yo F w metastatic pancreatic cancer and a deteriorating performance status, with recent admission for viral PNA vs. bacterial treated with antibiotics now presenting with fevers, fecal incontinence, diarrhea, and dysuria, with stool consistent with c diff. Overall she is improving with this treatment. I did offer her a scopolamine patch for her nausea but she asked NOT to change any of her meds (does not want oral antibiotics until discharge). Plan: -c diff precautions -flagyl 500 mg iv tid -cont levaquin for E. Faecalis UTI, plan for 5 days (Monday through Monday) -hypokalemia likely related to frequent diarrhea, will replete PO and IV -replete magnesium IV ARF: prerenal azotemia, unfortunately not improving as of yet so there may be some component of ATN -cont hydration xeralto, dose reduced, for DVT she reports now that she is most interested in the hospice residence, but if not available would do a senior living until a bed became available. she does NOT want to return home. DNR
[2016-12-19] MEDS: traMADol TAB* 50 MG PO PRN (08:30)
[2016-12-19] MEDS: Potassium Chlor TAB* 10 MEQ TAB.ER PO SCH (08:31)
[2016-12-19] MEDS: Rivaroxaban TAB(*) 15 MG PO SCH (08:31)
[2016-12-19] MEDS: Pregabalin CAP(*) 25 MG PO SCH ×2 (08:31→21:26)
[2016-12-19] MEDS: PTO:Pancrelipase (NF) 12,000 UNITS CAP.DR PO SCH ×3 (08:32→17:42)
[2016-12-19] MEDS: Metoprolol Tartrate TAB* 50 mg PO SCH ×2 (08:32→21:36)
[2016-12-19] MEDS: NS 0.9% w/ 40 Meq KCL 1000 ML* 1,000 ML IV SCH (08:44)
[2016-12-19 09:17] LABS: Hematocrit 29 % (35-47); Hemoglobin 9.1 g/dl (12.0-16.0); Mean Corpuscular HGB Conc 32 g/dl (31-36); Mean Corpuscular Hemoglobin 31 pg (27-31); Mean Corpuscular Volume 98 fL (80-97); Mean Platelet Volume 12 um3 (7.4-10.4); Red Blood Count 2.92 10^6/ul (4.0-5.4); Red Cell Distribution Width 20 % (10.5-15); White Blood Count 17.1 10^3/ul (3.5-10.8)
[2016-12-19 09:27] LABS: BUN/Creatinine Ratio 18.3 (8-20); Calcium 7.7 mg/dL (8.6-10.3); EGFR Non-African American 39.7 (>60); Magnesium 2.3 mg/dL (1.9-2.7); Potassium 4.3 mmol/L (3.5-5.0)
[2016-12-19 09:43] LABS: Add Diff/Slide Review? Slide Review Added; Comments Flag Yes
[2016-12-19] MEDS: NS 0.9% 1000 ML* 1,000 ML IV SCH (11:01)
[2016-12-19 12:54] LABS: Eosinophils % 2 % (0-6); Immature Granulocytes 13 % (0-9); Neutrophil % 75 % (38-83)
[2016-12-19 12:58] LABS: Add Path Review? YES; Burr Cells 2+; Hypochromasia 1+; Polychromasia 1+; Schistocytes 1+
[2016-12-20] MEDS: metroNIDAZOLE IV 500 MG/100ML* 500 MG/100 ML BAG IVPB SCH ×3 (01:37→18:22)
[2016-12-20] MEDS: NS 0.9% 1000 ML* 1,000 ML IV SCH ×2 (01:39→17:01)
[2016-12-20] MEDS: PROCHLORPERAZINE INJ 5 MG/ML 2 ML VIAL IV PRN (03:57)
[2016-12-20 05:38] LABS: Hematocrit 26 % (35-47); Hemoglobin 8.3 g/dl (12.0-16.0); Mean Corpuscular HGB Conc 33 g/dl (31-36); Mean Corpuscular Hemoglobin 32 pg (27-31); Mean Corpuscular Volume 98 fL (80-97); Mean Platelet Volume 11 um3 (7.4-10.4); Red Blood Count 2.59 10^6/ul (4.0-5.4); Red Cell Distribution Width 21 % (10.5-15); White Blood Count 8.8 10^3/ul (3.5-10.8)
[2016-12-20 05:51] LABS: BUN/Creatinine Ratio 15.5 (8-20); Calcium 7.1 mg/dL (8.6-10.3); EGFR African American 58.7 (>60); EGFR Non-African American 45.7 (>60); Magnesium 1.9 mg/dL (1.9-2.7); Potassium 3.8 mmol/L (3.5-5.0)
[2016-12-20] MEDS: Rivaroxaban TAB(*) 15 MG PO SCH (08:48)
[2016-12-20] MEDS: traMADol TAB* 50 MG PO PRN ×2 (08:48→22:00)
[2016-12-20] MEDS: PTO:Pancrelipase (NF) 12,000 UNITS CAP.DR PO SCH ×3 (08:48→17:01)
[2016-12-20] MEDS: Pregabalin CAP(*) 25 MG PO SCH ×2 (08:48→21:21)
[2016-12-20] MEDS: Metoprolol Tartrate TAB* 50 mg PO SCH ×2 (08:48→21:22)
[2016-12-20] MEDS: Ondansetron INJ* 2 MG/ML VIAL IV PRN (08:48)
--- NOTE | 2016-12-20 09:48 | CONSULT ---
Palliative / Hospice Consult Ordering Provider: Milton Sampson - Subjective Code Status: DNR Advance Directives Location: In Chart MOLST Part A Completed: Yes MOLST Part E Completed:: Yes Date: 12/20/16 - History or Present Illness History or Present Illness: This 76 year old woman was diagnosed with pancreatic cancer in 2014, metastatic to lymph nodes, and has undergone surgical resection as well as chemotherapy since that time. Course was complicated by cardiac arrest, PE, herpes zoster. She is now hospitalized for weakness and fatigue, likely sepsis due to UTI, and c.difficile colitis. She is now asking about coming to the hospice residence. Lab Values: Abnormal Lab Results 12/19/16 12/20/16 12/20/16 08:30 05:15 05:15 WBC 17.1 H 8.8 RBC 2.92 L 2.59 L Hgb 9.1 L 8.3 L Hct 29 L 26 L MCV 98 H 98 H MCH 31 32 H MCHC 32 33 RDW 20 H 21 H Plt Count 119 L 111 L MPV 12 H 11 H Immature Gran % (Auto) 13 H Neut % (Auto) 85.5 H 76.5 Lymph % (Auto) 6.1 L 11.4 L [place] % (Auto) 4.8 6.3 Eos % (Auto) 3.0 4.6 Baso % (Auto) 0.6 1.2 Absolute Neuts (auto) 14.6 H 6.7 Absolute Lymphs (auto) 1.0 1.0 Absolute Monos (auto) 0.8 0.6 Absolute Eos (auto) 0.5 0.4 Absolute Basos (auto) 0.1 0.1 Absolute Nucleated RBC 0 0 Neutrophils % 75 Band Neutrophils % 13 H Lymphocytes % 5 L Monocytes % 5 Eosinophils % 2 Nucleated RBC % 0 0 Differential Comment Normal RBC Morphology Not Reportable Polychromasia 1+ Hypochromasia 1+ [place] Cells 2+ Acanthocytes (Spur) 1+ Schistocytes 1+ Sodium 140 Potassium 3.8 Chloride 122 H Carbon Dioxide 17 L Anion Gap 1 L BUN 18 Creatinine 1.16 H Est GFR ( Amer) 58.7 Est GFR (Non-Af Amer) 45.7 BUN/Creatinine Ratio 15.5 Glucose 96 Calcium 7.1 L Magnesium 1.9 Laboratory Last Values WBC 8.8 10^3/ul (3.5-10.8) 12/20/16 05:15 RBC 2.59 10^6/ul (4.0-5.4) L 12/20/16 05:15 Hgb 8.3 g/dl (12.0-16.0) L 12/20/16 05:15 Hct 26 % (35-47) L 12/20/16 05:15 MCV 98 fL (80-97) H 12/20/16 05:15 MCH 32 pg (27-31) H 12/20/16 05:15 MCHC 33 g/dl (31-36) 12/20/16 05:15 RDW 21 % (10.5-15) H 12/20/16 05:15 Plt Count 111 10^3/ul (150-450) L 12/20/16 05:15 MPV 11 um3 (7.4-10.4) H 12/20/16 05:15 Immature Gran % (Auto) 13 % (0-9) H 12/19/16 08:30 Neut % (Auto) 76.5 % (38-83) 12/20/16 05:15 Lymph % (Auto) 11.4 % (25-47) L 12/20/16 05:15 [place] % (Auto) 6.3 % (1-9) 12/20/16 05:15 Eos % (Auto) 4.6 % (0-6) 12/20/16 05:15 Baso % (Auto) 1.2 % (0-2) 12/20/16 05:15 Absolute Neuts (auto) 6.7 10^3/ul (1.5-7.7) 12/20/16 05:15 Absolute Lymphs (auto) 1.0 10^3/ul (1.0-4.8) 12/20/16 05:15 Absolute Monos (auto) 0.6 10^3/ul (0-0.8) 12/20/16 05:15 Absolute Eos (auto) 0.4 10^3/ul (0-0.6) 12/20/16 05:15 Absolute Basos (auto) 0.1 10^3/ul (0-0.2) 12/20/16 05:15 Absolute Nucleated RBC 0 10^3/ul 12/20/16 05:15 Neutrophils % 75 % (38-83) 12/19/16 08:30 Band Neutrophils % 13 % (0-8) H 12/19/16 08:30 Lymphocytes % 5 % (25-47) L 12/19/16 08:30 Reactive Lymphs % 1 % (0-6) 12/17/16 05:15 Monocytes % 5 % (0-13) 12/19/16 08:30 Eosinophils % 2 % (0-6) 12/19/16 08:30 Nucleated RBC % 0 12/20/16 05:15 Differential Comment 12/19/16 08:30 Normal RBC Morphology Not Reportable 12/19/16 08:30 Polychromasia 1+ 12/19/16 08:30 Hypochromasia 1+ 12/19/16 08:30 Regi Cells 2+ 12/19/16 08:30 Acanthocytes (Spur) 1+ 12/19/16 08:30 Schistocytes 1+ 12/19/16 08:30 Sodium 140 mmol/L (133-145) 12/20/16 05:15 Potassium 3.8 mmol/L (3.5-5.0) 12/20/16 05:15 Chloride 122 mmol/L (101-111) H 12/20/16 05:15 Carbon Dioxide 17 mmol/L (22-32) L 12/20/16 05:15 Anion Gap 1 mmol/L (2-11) L 12/20/16 05:15 BUN 18 mg/dL (6-24) 12/20/16 05:15 Creatinine 1.16 mg/dL (0.51-0.95) H 12/20/16 05:15 Est GFR ( Amer) 58.7 (>60) 12/20/16 05:15 Est GFR (Non-Af Amer) 45.7 (>60) 12/20/16 05:15 BUN/Creatinine Ratio 15.5 (8-20) 12/20/16 05:15 Glucose 96 mg/dL (70-100) 12/20/16 05:15 Lactic Acid 1.2 mmol/L (0.5-2.0) 12/16/16 18:57 Calcium 7.1 mg/dL (8.6-10.3) L 12/20/16 05:15 Magnesium 1.9 mg/dL (1.9-2.7) 12/20/16 05:15 Total Bilirubin 0.80 mg/dL (0.2-1.0) 12/16/16 13:45 AST 15 U/L (13-39) 12/16/16 13:45 ALT 7 U/L (7-52) 12/16/16 13:45 Alkaline Phosphatase 153 U/L (34-104) H 12/16/16 13:45 C-Reactive Protein 130.85 mg/L (< 5.00) H 12/16/16 13:45 Total Protein 5.9 g/dL (6.4-8.9) L 12/16/16 13:45 Albumin 2.9 g/dL (3.2-5.2) L 12/16/16 13:45 Globulin 3.0 g/dL (2-4) 12/16/16 13:45 Albumin/Globulin Ratio 1.0 (1-3) 12/16/16 13:45 Lipase < 10 U/L (11.0-82.0) L 12/16/16 13:45 Urine Color Yellow 12/16/16 16:25 Urine Appearance Cloudy 12/16/16 16:25 Urine pH 5.0 (5-9) 12/16/16 16:25 Ur Specific [place] 1.013 (1.010-1.030) 12/16/16 16:25 Urine Protein 2+(100 mg/dl) (Negative) H 12/16/16 16:25 Urine Ketones Negative (Negative) 12/16/16 16:25 Urine Blood 3+ (Negative) H 12/16/16 16:25 Urine Nitrate Negative (Negative) 12/16/16 16:25 Urine Bilirubin Negative (Negative) 12/16/16 16:25 Urine Urobilinogen Negative (Negative) 12/16/16 16:25 Ur Leukocyte Esterase Trace (Negative) H 12/16/16 16:25 Urine WBC (Auto) 2+(11-20/hpf) (Absent) H 12/16/16 16:25 Urine RBC (Auto) 3+(>10/hpf) (Absent) H 12/16/16 16:25 Urine Bacteria 1+ (Absent) H 12/16/16 16:25 Urine Glucose Negative (Negative) 12/16/16 16:25 - Objective Active Medications: Acetaminophen (Tylenol Tab*) 650 mg PO Q6H PRN PRN Reason: fever/pain/headaches Last Admin: 12/17/16 00:49 Dose: 650 mg Heparin Sodium (Porcine) (Heparin Flush Port (Ivad)) 5 ml FLUSH DAILY [facility] PRN Reason: Protocol Last Admin: 12/20/16 08:48 Dose: Not Given Hydromorphone HCl (Dilaudid Iv*) 0.5 mg IV Q4H PRN PRN Reason: PAIN Last Admin: 12/18/16 20:20 Dose: 0.5 mg Metronidazole/Sodium Chloride (Flagyl 500 Mg Ivpb*) 500 mg in 100 mls @ 100 mls /hr IVPB Q8H [facility] Last Admin: 12/20/16 01:37 Dose: 100 mls/hr Levofloxacin/Dextrose (Levaquin 500 Mg Ivpremix(*)) 500 mg in 100 mls @ 100 mls /hr IVPB Q48H [facility] Sodium Chloride (Ns 0.9% 1000 Ml*) 1,000 mls @ 75 mls/hr IV PER RATE [facility] Last Admin: 12/20/16 01:39 Dose: 75 mls/hr Loperamide HCl (Imodium Cap*) 2 mg PO Q6HR PRN PRN Reason: DIARRHEA Metoprolol Tartrate (Lopressor Tab*) 50 mg PO Q12HR [facility] Last Admin: 12/20/16 08:48 Dose: 50 mg Ondansetron HCl (Zofran Odt Tab*) 4 mg PO Q6H PRN PRN Reason: NAUSEA Ondansetron HCl (Zofran Inj*) 4 mg IV Q6H PRN PRN Reason: NAUSEA Last Admin: 12/20/16 08:48 Dose: 4 mg Pancrelipase (Creon (Nf)) 24,000 units PO TID WITH MEALS [facility] Last Admin: 12/20/16 08:48 Dose: 24,000 units Pregabalin (Lyrica Cap(*)) 75 mg PO BID [facility] Last Admin: 12/20/16 08:48 Dose: 75 mg Prochlorperazine Edisylate (Compazine Inj*) 10 mg IV Q6H PRN PRN Reason: NAUSEA/VOMITING Last Admin: 12/20/16 03:57 Dose: 10 mg Rivaroxaban (Xarelto(*)) 15 mg PO DAILY [facility] Last Admin: 12/20/16 08:48 Dose: 15 mg Tramadol HCl (Ultram*) 50 mg PO Q6HR PRN PRN Reason: PAIN Last Admin: 12/20/16 08:48 Dose: 50 mg Vital Signs: Vital Signs: Temp Pulse Resp BP Pulse Ox 97.6 F 74 17 122/80 96 12/20/16 07:47 12/20/16 07:47 12/20/16 08:48 12/20/16 08:00 12/20/16 07:47 Patient Weight: Weight 153 lb 12.8 oz Intake and Output: Intake & Output 12/18/16 12/19/16 12/20/16 12/21/16 06:59 06:59 06:59 06:59 Intake Total 2794 3118 2618 0 Output Total 0 Balance 2794 3118 2618 0 Intake: IV Fluids 2384 1391 1780 NS (0.9%) 60 790 NS 20MeQ K 2384 NS 40MeQ KCl 1331 990 IVPB 110 567 328 ABX - LEVAQUIN 157 Flagyl 307 328 Mag Sulf 4 GM 103 NS (0.9%) 110 Oral 300 1160 510 0 Output: Urine 0 Other: Estimated Void Small Medium Medium Date of Last Bowel 0 Movement # Bowel Movements 1 4 1 1 Estimated Stool Amount Medium Medium Small # Voids 2 5 0 1 ADLs: Meal Record Start: 12/16/16 19: 19 Freq: DAILY@0900,1400,1800 Status: Active Document 12/17/16 09:00 [id number] (Rec: 12/17/16 10:54 [id number] MED-C11) Document 12/17/16 14:00 [id number] (Rec: 12/17/16 14:10 [id number] MED-C11) Document 12/17/16 18:00 [id number] (Rec: 12/17/16 18:31 [id number] MED-C11) Document 12/18/16 09:00 [id number] (Rec: 12/18/16 10:14 [id number] MED-C11) Document 12/18/16 14:00 [id number] (Rec: 12/18/16 14:16 [id number] MED-C11) Document 12/18/16 18:00 [id number] (Rec: 12/18/16 20:39 [id number] MED-C11) Document 12/19/16 09:00 [id number] (Rec: 12/19/16 11:06 [id number] MED-C11) Document 12/19/16 13:53 [id number] (Rec: 12/19/16 13:55 [id number] MED-C11) Document 12/19/16 18:00 [id number] (Rec: 12/19/16 22:18 [id number] MED-C11) Document 12/20/16 09:00 [id number] (Rec: 12/20/16 09:42 [id number] MED-C09) Intake and Output Start: 12/16/16 19: 19 Freq: DAILY@0600,1400,2200 Status: Active Document 12/16/16 22:00 [id number] (Rec: 12/16/16 22:57 [id number] MED-C09) Document 12/17/16 05:53 [id number] (Rec: 12/17/16 05:54 [id number] MED-C11) Document 12/17/16 14:00 [id number] (Rec: 12/17/16 14:10 [id number] MED-C11) Document 12/17/16 22:00 [id number] (Rec: 12/17/16 22:53 [id number] MED-C11) Document 12/18/16 06:00 [id number] (Rec: 12/18/16 06:07 [id number] MEDL-C02) Document 12/18/16 14:00 [id number] (Rec: 12/18/16 14:16 [id number] MED-C11) Document 12/18/16 22:00 [id number] (Rec: 12/18/16 22:03 [id number] MED-C11) Document 12/19/16 05:13 [id number] (Rec: 12/19/16 05:14 [id number] MEDL-C01) Document 12/19/16 13:53 [id number] (Rec: 12/19/16 13:55 [id number] MED-C11) Document 12/19/16 22:00 [id number] (Rec: 12/19/16 22:20 [id number] MED-C11) Document 12/20/16 04:04 [id number] (Rec: 12/20/16 04:04 [id number] MEDL-C01) Head: Symmetrical Eyes: No Scleral Icterus Ears/Nose/Mouth/Throat: Clear Oropharnyx Cardiovascular: RRR Respiratory: Clear to Auscultation Extremities: No Edema Neurological: Alert and Oriented x 3 - Assessment Assessment: I discussed hospice services with this patient, and together we completed the MOLST Part E form to ascertain her desire for minimal intervention other than comfort measures. She says she can not return home as her is unable to care for her. She is clearly at end-of-life, bed bound with failing performance status as well as continuing c. difficile diarrhea. She is appropriate for hospice services and I am going to try to get a bed for her at the residence today. Thanks for asking for a consult. - Plan Consult Plan (MU): Hospice - Time On Unit Date of Evaluation: 12/20/16 Hospice Consult Time in: 09:20 Hospice Consult Time Out: 09:50 Hospice Consult Time Total: 30 > 50% of Time Spend In Counseling or Coordinating Care: Yes
[2016-12-20] MEDS ORDERED: Levofloxacin TAB* 500 MG PO SCH (17:00)
[2016-12-20] MEDS ORDERED: Levofloxacin 500 MG IVPREMIX(* 500 MG/100 ML BAG IVPB SCH (17:00)
[2016-12-21] MEDS: Ondansetron INJ* 2 MG/ML VIAL IV PRN ×2 (00:55→08:56)
[2016-12-21] MEDS: metroNIDAZOLE IV 500 MG/100ML* 500 MG/100 ML BAG IVPB SCH (02:10)
[2016-12-21 08:56] VITALS: BP 142/82
[2016-12-21] MEDS: Metoprolol Tartrate TAB* 50 mg PO SCH (09:05)
[2016-12-21] MEDS: Rivaroxaban TAB(*) 15 MG PO SCH (09:05)
[2016-12-21] MEDS: PTO:Pancrelipase (NF) 12,000 UNITS CAP.DR PO SCH (09:06)
[2016-12-21] MEDS: traMADol TAB* 50 MG PO PRN (09:49)
--- NOTE | 2016-12-21 17:02 | DS ---
DISCHARGE SUMMARY: DATE OF ADMISSION: 12/16/16 DATE OF DISCHARGE: 12/21/16 ATTENDING PHYSICIAN: Dr. Sampson * (DICTATED BY KVNG ANDREA) PRINCIPAL REASONS FOR DIAGNOSES: 1. Urosepsis. 2. History of acute dyspnea. 3. Fever. 4. Chronic pulmonary embolism with infarct. 5. History of biliary stent insertion. 6. History of hyperlipidemia. 7. History of hypertension. 8. Pancreatic cancer with progression of disease. DISCHARGE MEDICATIONS: Include: 1. Tylenol as needed 650 mg p.o. q.6 hours p.r.n. 2. She will have stopped and had a full complete course of Levaquin 500 mg every 48 hours. 3. Imodium 2 mg every 6 hours as needed for diarrhea. 4. Lopressor 50 mg every 12 hours. 5. Flagyl 500 mg p.o. every 8 hours for C. Difficile. 6. Zofran 4 mg p.o. every 6 hours as needed for nausea. 7. Pancrelipase 24,000 units with meals. 8. Lyrica 75 mg p.o. b.i.d. 9. Xarelto 15 mg p.o. daily. 10. Tramadol 50 mg every 6 hours as needed for pain. 11. She was given a comfort care pack of Roxanol 20 mg every 2 hours as needed for pain. 12. Lorazepam 1.5 mg every 6 hours as needed for anxiety or agitation. HOSPITAL COURSE: The patient was admitted to the hospital for urosepsis and severe weakness with fatigue and the inability to function at home along with severe diarrhea, urinary incontinence and found to have a urinary tract infection of E. faecalis and subsequently placed on Levaquin during her hospital stay. She was cowan cultured and also had severe diarrhea upon her admission and found to have C. Difficile and placed on Flagyl IV which she had recovered nicely from and will continue the Flagyl for 10 additional days. She had completed her original course of pancreatic cancer therapy and had evidence of recurrence after having had Gemzar and Abraxane and her CA 19-9 was slowly climbing and was found to have progression of her disease as her CA 19-9 climbed to over 800 to 1000. The patient had a long conversation with Dr. Sampson and felt that given her performance status and climbing progression of her pancreatic disease that she would be better served in a protected area and they agreed that hospice or the hospice residence was in her best interest, and a palliative/hospice consultation was initiated with Dr. Deepti Bailon, who met with the patient and they agreed that the hospice residence was an amicable place for her to live out the remaining portion of her life. During the hospitalization, she was in agreement with a DNR status and a MOLST form was completed and will remain with her over at the hospice residence. KVNG ANDREA [id number]/[facility] #: [id number] MTDSarah
== END 2016-12-21 09:55 | disposition hospice, inpatient (51) | DRG 371 ==
LOC: ED 12:28 → MED 18:19
PROVIDERS: ADMIT Internal Medicine Hematology & Oncology; ATTEND Internal Medicine Hematology & Oncology
DX: A04.7 Enterocolitis due to Clostridium difficile (principal); N17.0 Acute kidney failure with tubular necrosis; C78.7 Secondary malignant neoplasm of liver and intrahepatic bile duct; N39.0 Urinary tract infection, site not specified; C25.9 Malignant neoplasm of pancreas, unspecified; E86.0 Dehydration; D50.0 Iron deficiency anemia secondary to blood loss (chronic); E87.1 Hypo-osmolality and hyponatremia; B96.20 Unspecified Escherichia coli [E. coli] as the cause of diseases classified elsewhere; I10 Essential (primary) hypertension; Z66 Do not resuscitate; E78.5 Hyperlipidemia, unspecified; I25.2 Old myocardial infarction; Z86.718 Personal history of other venous thrombosis and embolism; Z86.711 Personal history of pulmonary embolism; Z79.01 Long term (current) use of anticoagulants; Z79.899 Other long term (current) drug therapy
CPT/HCPCS: A9270-GY; G0463; G8427; J0780; J1170; J1642; J1956; J2405; J3475